=== PATIENT | male | born 1970 | race Caucasian/White ===

== ENCOUNTER 2016-10-24 11:19 | Emergency (ER) | payer BC ==
[~2016-10-24] VITALS: Ht 193 cm; Wt 154.2 kg
[~2016-10-24 11:19] MED LIST: CIPR-255 PO; IBUP-103 PO
[2016-10-24 11:23] VITALS: TEMP 36.5; Ht 193 cm; Wt 154.2 kg
[2016-10-24] MEDS ORDERED: DIPHTHERIA/TETANUS/PERTUSSIS 0.5 ML SYR/VIAL IM. ONE (12:00)
[2016-10-24 12:02] VITALS: BP 161/93; PULSE 78; O2SAT 96
--- NOTE | 2016-10-24 12:11 | DIAGNOSTIC IMAGING REPORT ---
LEFT TIBIA/FIBULA 2 VIEWS ROUTINE CLINICAL HISTORY: Puncture wound left lower leg COMPARISON: None FINDINGS: No acute fracture of the left tibia or fibula is identified. A corticated ossicle along the medial malleolus is old. Talar dome is intact. There is posterior and plantar calcaneal spurring with an os trigonum. No radiopaque foreign bodies are identified. There are suspected varicosities of the left lower leg. IMPRESSION: 1. No acute fracture of the left tibia or fibula. 2. No radiopaque foreign body within the left lower leg. Electronically signed by: Julio Oneill M.D. 10/24/2016 12:10 PM Dictated Date/Time: 10/24/2016 12:08 PM
--- NOTE | 2016-10-25 08:09 | EMERGENCY ROOM VISIT NOTE ---
ED Visit Note First contact with patient: 11:34 CHIEF COMPLAINT: Puncture wound of the left leg HISTORY OF PRESENT ILLNESS: This 46-year-old white male patient was using a drill while standing in the bathtub. He slipped and dropped the drill, breaking the tip of the drill bit. He noticed a open wound on his saldaña. He is unsure if the drill bit broke off in his leg. He states it may have gone down the drain. The area is mildly painful. His accompanies him today. He has been ambulatory. He believes his last tetanus was 9-10 years ago. No numbness or tingling. No other complaints. REVIEW OF SYSTEM: HEENT: No dizziness, visual problems, hearing loss, or tinnitus. There is no difficulty swallowing and no oral lesions are present. PULMONARY: No cough, shortness of breath, sputum production or hemoptysis. CARDIOVASCULAR: No chest pain, palpitations, shortness of breath or peripheral edema. GASTROINTESTINAL: No diarrhea, constipation, nausea, vomiting, or abdominal pain. GENITOURINARY: No dysuria, frequency, urgency or nocturia. NEUROLOGIC: No weakness, muscle tenderness, epilepsy or history of neurological problems. MUSCULOSKELETAL: No history of joint tenderness/swelling. No history of arthritis or arthralgias. SKIN: No rashes or lesions. PSYCHIATRIC: No history of depression or mental illness. ENDOCRINE: No history of diabetes, thyroid disorders, or abnormal hair growth. PMH: The patient is healthy; there is no significant medical or surgical history. Family history: Unremarkable Current medications: Ibuprofen Allergies: Keflex and tetracycline SOCIAL HISTORY: Patient lives at home with his . Employed. No tobacco use. PHYSICAL EXAM: Vital Signs: Reviewed Nurse's notes. Afebrile. General: Well- developed, well-nourished, large middle-aged white male in no acute distress. Sitting on a bed. Alert and oriented. Skin: Warm and dry with good turgor. No rashes or lesions. No ecchymosis or erythema. The patient is not diaphoretic. No abrasions. 8 mm diameter circular puncture wound present on the left saldaña. Bleeding is controlled. No foreign material is visible. Musculoskeletal: There is a puncture wound on the anterior aspect of the left saldaña. No foreign material is seen in the wound. No retained foreign body is palpable under the skin. Strength is 5/5 for resisted ankle dorsiflexion and plantarflexion. Motor function of the toes is intact and unremarkable. No evidence for compartment syndrome. Neurologic: Gross sensation is intact across the left leg by soft touch. Peripheral pulses are 2+. EMERGENCY DEPARTMENT COURSE: Adacel immunization was given IM. Radiographic Imaging of the left tibia and fibula was obtained. No metallic foreign material was noted. Films were read by radiology. DIAGNOSIS: Puncture wound of the left lower leg DISCHARGE INSTRUCTIONS: Patient was educated regarding today's findings. Conservative care measures were discussed. Wound was irrigated copiously using a small amount of Betadine diluted with copious normal sterile saline to total 60 mL. Sterile dressing was applied. Observe the area closely for signs of infection such as redness, swelling, increasing pain, or drainage. Return here or go to your own doctor if any of these occur for consideration of antibiotic treatment. Tylenol and Motrin every 6 hours as needed for mild discomfort. Current/Historical Medications Scheduled PRN Ibuprofen Tab (Advil), 600-800 MG PO for Pain Allergies Coded Allergies: Tetracyclines (Unverified Allergy, Mild, 10/24/16) Cephalexin (Unverified Allergy, Unknown, VOMITING, 10/24/16) Vital Signs Date Time Temp Pulse Resp B/P Pulse Ox O2 Delivery O2 Flow Rate FiO2 10/24/16 12:02 78 20 161/93 96 Room Air 10/24/16 11:23 36.5 82 18 155/96 95 Room Air Medications Administered Medications (Trade) Dose Ordered Sig/Cierra Route Start Time Stop Time Status Last Admin Dose Admin Diphtheria/ Pertussis/Tetanus Vacc (Adacel Inj) 0.5 ml ONCE ONCE IM. 10/24/16 12:00 10/24/16 12:01 DC 10/24/16 12:07 0.5 ML Departure Information Impression Primary Impression: Puncture wound of left lower extremity excluding thigh Dispostion Home / Self-Care Condition FAIR Referrals Viktoria Montoya,DO (PCP) No Doctor, Assigned Forms HOME CARE DOCUMENTATION FORM, MOTRIN USE, TYLENOL USE, IMPORTANT VISIT INFORMATION Patient Instructions My [facility] Additional Instructions Tylenol and Motrin every 6 hours as needed for discomfort Cleanse daily with soap and water and cover with Triple Antibiotic ointment Watch for any signs of infection and return to your PCP or the ED if needed
== END 2016-10-24 12:17 | disposition home or self-care (01) ==
LOC: C.EDB 11:20 → C.EDD 12:17
DX: S81.832A Puncture wound without foreign body, left lower leg, initial encounter (principal); W29.8XXA Contact with other powered hand tools and household machinery, initial encounter; Y92.012 Bathroom of single-family (private) house as the place of occurrence of the external cause

== ENCOUNTER 2017-10-16 01:01 | Emergency (ER) | payer BC ==
[~2017-10-16] VITALS: Ht 193 cm; Wt 138.3 kg
[~2017-10-16 01:01] MED LIST changes: -CIPR-255 PO
[2017-10-16 01:05] VITALS: BP 129/84; PULSE 110; TEMP 36.9; O2SAT 94; Ht 193 cm; Wt 138.3 kg
--- NOTE | 2017-10-16 01:28 | EMERGENCY ROOM VISIT NOTE ---
History Report prepared by Filipe: Quintin Spears Under the Supervision of: Dr. Rasheed Hinton M.D. First contact with patient: 01:11 Chief Complaint: FEVER Stated Complaint: FEVER History of Present Illness The patient is a 47 year old male who presents to the Emergency Room with complaints of constant fever that began 4 hours ago. He states his fever was 104. He denies using a thermometer to take his temperature. He has associated symptoms of a runny nose and cough. He denies taking Tylenol to relieve his symptoms. Patient has a history of chronic urinary infections. He states that his symptoms feel similar to previous urinary infections. He states that he currently takes Cipro. He denies associated symptoms of nausea, vomiting, and passing out. He denies having diabetes. Patient adds that his daughter had the flu a week ago. Patient states that he got the flu shot this year. Patient states that he had urinary reconstruction 19 years ago. He states his doctor is Dr. King from [facility]. Source of History: patient Onset: 4 hours ago Timing: constant Associated Symptoms: + cough, No nausea, No vomiting Note: Patient has a runny nose. He denies passing out. Review of Systems See HPI for pertinent positives & negatives. A total of 10 systems reviewed and were otherwise negative. Past Medical & Surgical Medical Problems: (1) Urinary tract infection Family History No pertinent family history. Social History Smoking Status: Former Smoker Housing Status: lives with family Current/Historical Medications Scheduled Oseltamivir (Tamiflu), 75 MG PO BID Scheduled PRN Ibuprofen Tab (Advil), 600-800 MG PO for Pain Allergies Coded Allergies: Tetracyclines (Unverified Allergy, Mild, 10/16/17) Cephalexin (Unverified Allergy, Unknown, VOMITING, 10/16/17) Physical Exam Vital Signs Date Time Temp Pulse Resp B/P (MAP) Pulse Ox O2 Delivery O2 Flow Rate FiO2 10/16/17 01:05 36.9 110 18 129/84 94 Room Air Physical Exam GENERAL: Patient is well appearing and in no acute distress. HEENT: No acute trauma, normocephalic atraumatic, mucous membranes moist, mild runny nose, no scleral icterus. NECK: No stridor, no adenopathy, no meningismus, trachea is midline. LUNGS: No dyspnea. Clear to auscultation and equal bilaterally. No wheeze, no rhonchi. HEART: Tachycardic rate and rhythm. No murmurs, rubs, gallops appreciated. ABDOMEN: Soft, nontender, bowel sounds positive, no masses appreciated, no peritonitis. BACK: No midline tenderness, no CVA tenderness EXTREMITIES: Normal motion all extremities, no cyanosis, no edema. NEUROLOGIC: Alert and oriented, no acute motor or sensory deficits, no focal weakness, cranial nerves grossly intact. SKIN: No rash, no jaundice, no diaphoresis. Medical Decision & Procedures Laboratory Results Test 10/16/17 01:40 Urine Color YELLOW Urine Appearance TURBID (CLEAR) Urine pH 5.0 (4.5-7.5) Urine Specific [place] 1.030 (1.000-1.030) Urine Protein NEG (NEG) Urine Glucose (UA) TRACE (NEG) Urine Ketones TRACE (NEG) Urine Occult Blood NEG (NEG) Urine Nitrite NEG (NEG) Urine Bilirubin NEG (NEG) Urine Urobilinogen NEG (NEG) Urine Leukocyte Esterase MODERATE (NEG) Urine WBC (Auto) >30 /hpf (0-5) Urine RBC (Auto) 0-4 /hpf (0-4) Urine Hyaline Casts (Auto) 1-5 /lpf (0-5) Urine Epithelial Cells (Auto) 5-10 /lpf (0-5) Urine Bacteria (Auto) 4+ (NEG) ED Course 0120: The patient was evaluated in room B4. A complete history and physical exam was performed. 0135: Reevaluated the patient. Discussed results and discharge instructions. He verbalized understanding and agreement. The patient is ready for discharge. Medical Decision Differential: Viral, Pharyngitis, Cellulitis, Pneumonia, Influenza, Meningitis, Sepsis, Bacteremia, UTI/Pyelonephritis, Endocrine, Toxicologic, amongst other pathologies entertained. 47 yr old male with previous history penial reconstructive surgery and periodic UTIs arrives with fevers, increased urination and cloudy urine. Also has URI symptoms that could represent flu, which his daughter had last week. Carries Cipro with him which he will take as UA/UCx obtained here. UA is consistent with UTI, and I discussed previous resistance to Cipro, but he states it is what his Urologist wishes him to take, thus we will await further pattern of this infection. I will start him on Tamiflu given early symptoms, URI symptoms , daughter with flu, and the epidemic currently in area. He is mildly tachycardic but does not exhibit other evidence of sepsis/bacteremia. He has no flank/back pain to suggest pyelonephritis at this time. Medication Reconcilliation Current Medication List: was personally reviewed by me Blood Pressure Screening Patient's blood pressure: Normal blood pressure Blood pressure disposition: Did not require urgent referral Impression Primary Impression: Urinary tract infection symptoms Additional Impression: Influenza-like symptoms Scribe Attestation The scribe's documentation has been prepared under my direction and personally reviewed by me in its entirety. I confirm that the note above accurately reflects all work, treatment, procedures, and medical decision making performed by me. Departure Information Dispostion Home / Self-Care Prescriptions Oseltamivir (Tamiflu) 75 Mg Cap 75 MG PO BID, #10 CAP Prov: Rasheed Hinton M.D. 10/16/17 Referrals No Doctor, Assigned (PCP) Patient Instructions My [facility] Additional Instructions Follow up with your Urologist. Return if worsening fevers, passing out, vomiting, abdominal pains or other concerns. Take Tamiflu if flu like symptoms worsen within 48 hours of symptom onset. You may Use Tylenol (acetaminophen) as needed for fevers and body aches. Problem Qualifiers
[2017-10-16] MEDS ORDERED: OSEL75CA12 PO (01:30)
== END 2017-10-16 01:40 | disposition home or self-care (01) ==
LOC: C.EDB 01:02
DX: R50.9 Fever, unspecified (principal); R05 Cough; R82.99 Other abnormal findings in urine; Z87.440 Personal history of urinary (tract) infections; Z87.891 Personal history of nicotine dependence

== ENCOUNTER → 2017-11-23 | Outpatient (CLI) | payer BC ==
[~2017-11-23] MED LIST changes: +ALPR-411 PO; +CIPR1TAB11 PO; +CZR50 PO; +NAPR-1169 PO; +OSEL75CA12 PO
[2017-11-23 13:40] LABS: BASO % 1.6 %; EOS % 4.4 %; EOS ABS # 0.28 K/uL (0-0.5); HEMATOCRIT 42.6 % (42-52); HEMOGLOBIN 14.5 g/dL (14.0-18.0); IG# 0.04 K/uL (0.00-0.02); LYMPH % 42.7 %; LYMPH ABS # 2.74 K/uL (1.2-3.4); MEAN CELL VOLUME 90.4 fL (80-100); MEAN CORPUSCULAR HEMOGLOBIN 30.8 pg (25-34); MEAN PLATELET VOLUME 10.8 fL (7.4-10.4); MONO % 19.7 %; MONO ABS # 1.26 K/uL (0.11-0.59); NEUT ABS # 1.99 K/uL (1.4-6.5); PLATELET COUNT 235 K/uL (130-400); RED CELL DISTRIBUTION WIDTH CV 13.2 % (11.5-14.5); RED CELL DISTRIBUTION WIDTH SD 43.4 fL (36.4-46.3); WHITE BLOOD COUNT 6.41 K/uL (4.8-10.8)
[2017-11-23 14:03] LABS: BLOOD UREA NITROGEN 12 mg/dl (7-18); CALCIUM 8.8 mg/dl (8.5-10.1); CARBON DIOXIDE 24 mmol/L (21-32); CREATININE 0.81 mg/dl (0.60-1.40); GLUCOSE 102 mg/dl (70-99); POTASSIUM 4.1 mmol/L (3.5-5.1); SODIUM 136 mmol/L (136-145)
[2017-11-23 14:04] LABS: ALBUMIN 3.9 gm/dl (3.4-5.0); ALKALINE PHOSPHATASE 52 U/L (45-117); ALT/SGPT 112 U/L (12-78); AST/SGOT 72 U/L (15-37); TOTAL PROTEIN 9.2 gm/dl (6.4-8.2)
== END | disposition home or self-care (01) ==
LOC: C.LABSPEC 13:01
PROVIDERS: ATTEND Family Medicine
DX: A41.9 Sepsis, unspecified organism (principal)

== ENCOUNTER → 2017-11-26 | Outpatient (CLI) | payer BC ==
--- NOTE | 2017-11-26 10:55 | DIAGNOSTIC IMAGING REPORT ---
CHEST 2 VIEWS ROUTINE HISTORY: 47 years-old Male PICC LINE REMOVAL status post removal of right-sided PICC COMPARISON: Chest radiograph 08/19/2009 TECHNIQUE: PA and lateral views of the chest FINDINGS: Cardiac mediastinal and hilar silhouettes are within normal limits. No pneumothorax, pleural effusion, focal airspace consolidation or overt pulmonary edema. Mild right hemidiaphragmatic elevation. Degenerative changes are noted within the shoulders and spine. IMPRESSION: No acute process. The above report was generated using voice recognition software. It may contain grammatical, syntax or spelling errors. Electronically signed by: Thierno Austin M.D. 11/26/2017 10:53 AM Dictated Date/Time: 11/26/2017 10:52 AM
== END | disposition home or self-care (01) ==
LOC: C.RAD 10:10
PROVIDERS: ATTEND Family Medicine
DX: Z45.2 Encounter for adjustment and management of vascular access device (principal)

== ENCOUNTER → 2017-11-26 | Day surgery (SDC) | payer BC ==
[~2017-11-26] VITALS: Ht 194.3 cm; Wt 186.0 kg
[2017-11-26 09:53] VITALS: BP 156/83; PULSE 88; TEMP 36.3; O2SAT 99; Ht 194.3 cm; Wt 186.0 kg
== END | disposition home or self-care (01) ==
LOC: C.MTU 09:31
PROVIDERS: ATTEND Family Medicine
DX: Z45.2 Encounter for adjustment and management of vascular access device (principal)

== ENCOUNTER 2018-09-06 14:15 | Inpatient (IN) ==
[2018-09-06 15:21] LABS: Appearance Urine Cloudy (Clear); Bacteria Urine Automated 2+ (Negative); Bilirubin Urine Negative (Negative); Color Urine Yellow; Glucose Urine UA 1+ (Negative); Ketones Urine Negative (Negative); Leukocyte Esterase Urine 2+ (Negative); Nitrite Urine Positive (Negative); Protein Urine Negative (Negative); Specific Gravity Urine 1.028 (1.000-1.030); Urobilinogen Urine Negative (Negative); WBC Urine Automated >30 /hpf (0-5)
[2018-09-06] MEDS ORDERED: ACETAMINOPHEN 500 MG TAB PO STA (15:30)
[2018-09-06] MEDS ORDERED: SODIUM CHLORIDE 0.9% 1000ML 1,000 ML IV SCH ×2 (15:30→17:00)
[2018-09-06] MEDS ORDERED: ONDANSETRON INJ 2 MG/ML 2 ML VIAL IV STA (15:30)
[2018-09-06 15:56] LABS: Basophils # (auto) 0.04 K/uL (0-0.2); Basophils % (auto) 0.2 %; Eosinophils # (auto) 0.12 K/uL (0-0.5); Eosinophils % (auto) 0.7 %; Hematocrit (blood only) 43.3 % (42-52); Hemoglobin 14.7 g/dL (14.0-18.0); Immature Granulocytes # (auto) 0.08 K/uL (0.00-0.02); Immature Granulocytes % (auto) 0.4 %; Lymphocytes # (auto) 0.68 K/uL (1.2-3.4); Lymphocytes % (auto) 3.8 %; Mean Corpuscular Hgb Conc 33.9 g/dL (32-36); Mean Corpuscular Volume 91.5 fL (80-100); Mean Platelet Volume 10.5 fL (7.4-10.4); Monocytes # (auto) 0.66 K/uL (0.11-0.59); Monocytes % (auto) 3.7 %; Neutrophils # (auto) 16.27 K/uL (1.4-6.5); Neutrophils % (auto) 91.2 %; Platelet Count 216 K/uL (130-400); RDW Coefficient of Variation 12.8 % (11.5-14.5); RDW Standard Deviation 42.5 fL (36.4-46.3); Red Blood Count 4.73 M/uL (4.7-6.1); White Blood Count 17.85 K/uL (4.8-10.8)
[2018-09-06 16:14] LABS: Albumin Level 3.9 gm/dl (3.4-5.0); BUN Creatinine Ratio 11.9 (10-20); Calcium 8.9 mg/dl (8.5-10.1); Creatinine Clr Calc Pharmacy 157.4 ml/min; Est GFR (African American) 97.3; Est GFR (Non-African American) 83.9
[2018-09-06 16:19] LABS: Albumin Globulin Ratio 0.7 (0.9-2); Bilirubin,Total 0.7 mg/dl (0.2-1); Globulin 5.4 gm/dl (2.5-4.0); Total Protein 9.3 gm/dl (6.4-8.2)
[2018-09-06] MEDS ORDERED: SODIUM CHLORIDE 0.9% 1000ML 1,000 ML IV STA (16:47)
[2018-09-06] MEDS ORDERED: DAPTOmycin 775 MG in SYRINGE 0 ML IV ONE (16:47)
[2018-09-06] MEDS ORDERED: OPTIRAY 320 125ml IV PRN (17:08)
--- NOTE | 2018-09-06 17:21 | CT Scan Report ---
CT OF THE ABDOMEN AND PELVIS WITH CONTRAST CLINICAL HISTORY: Fever. Urinary tract infection. Evaluate for pyelonephritis. COMPARISON STUDY: CT of the abdomen and pelvis February 14, 2018. TECHNIQUE: Following IV administration of 115 mL of Optiray-320, axial images of the abdomen and pelv is were obtained from the lung bases to the proximal femurs. Images were reviewed in the axial, sagit wesley, and coronal planes. IV contrast was administered without complication. Automated exposure contr ol was utilized for the study. A dose lowering technique was utilized adhering to the principles of ALARA. CT DOSE: 2451.84 mGy.cm FINDINGS: Lung bases are clear. 2 right renal calculi measure up to 7 mm. There are no ureteral calcu li. There is no hydronephrosis or hydroureter. There is no renal abscess. There is no CT evidence for pyelonephritis. The nephrograms are symmetric. Fatty infiltration of the liver is noted. The spleen, adrenal glands and pancreas are unremarkable. There is no evidence for a bowel obstruction. The appe ndix is normal. There is no ascites. No lymphadenopathy is present. There are prosthetic calcificatio ns. No pneumatosis, free air or portal venous gas is present. No suspicious osseous lesions are noted . IMPRESSION: 1. Right-sided nephrolithiasis. No ureteral calculi or hydronephrosis. 2. No CT evidence for pyelonephritis. 3. Fatty liver. 4. No bowel obstruction. Normal appendix. Electronically signed by: Julio Oneill M.D. 09/06/2018 5:20 PM
[2018-09-06] MEDS: AZTREONAM 2,000 MG in DEXTROSE 5% 100 ML IV SCH (18:08)
--- NOTE | 2018-09-06 18:47 | Emergency Department Note ---
Entered by Marleen Kebede acting as a scribe for ED Provider Note CHIEF COMPLAINT: Urinary retention HISTORY OF PRESENT ILLNESS: The patient is a 48 year old male who presents to the Emergency Room with complaints of persistent urinary retention that began several days prior to arrival. The patient states that he previously had a urethral reconstruction, and states that he has had scar tissue buildup from this surgery. He states that he has a procedure to remove some of this scar tissue scheduled for 2 days from today. The patient states that he has fevers, chills, headache, diarrhea, nausea, and vomiting. The patient states that this is similar to prior episodes. The patient states that he is currently on Macrobid. Pt denies LOC, diaphoresis, visual changes, neck pain, chest pain, breathing difficulties, abdominal pain, back pain, melena, hematochezia, numbness, weakness, lymphadenopathy, rash, or other complaints. REVIEW OF SYSTEMS: See HPI for pertinent positives and negatives. A total of ten systems were reviewed and were otherwise negative. PMHx/PSHx: Urinary tract infection Urethral reconstruction SOCIAL HISTORY: Patient lives at home. PHYSICAL EXAM: GENERAL: Awake, alert, uncomfortable-appearing, in no distress HENT: Normocephalic, atraumatic. Oropharynx unremarkable. EYES: Normal conjunctiva. Sclera non-icteric. NECK: Supple. No nuchal rigidity. FROM. No masses. RESPIRATORY: Clear to auscultation. No wheezes. No rales. Normal respiratory effort. CARDIAC: Tachycardic rate. Normal rhythm. No murmurs. No rubs. Extremities warm and well perfused. Pulses equal. No JVD. GI: Soft, non-distended. No tenderness to palpation. No rebound or guarding. No masses. RECTAL: Deferred. MUSCULOSKELETAL: Atraumatic. Chest examination reveals no tenderness. The back is symmetrical on inspection without obvious abnormality. There is no CVA tenderness to palpation. No joint edema. LOWER EXTREMITIES: Calves are equal size bilaterally and non-tender. No edema. No discoloration. NEURO: Normal sensorium. No sensory or motor deficits noted. SKIN: No rash or jaundice noted. EMERGENCY DEPARTMENT COURSE: 1518: Past medical records reviewed. The patient was evaluated in room C12B, and a complete history and physical examination were performed. 1647: I reevaluated the patient and he states that he is feeling better. 1708: I [facility] further [facility] the patient. MEDICAL DECISION MAKING: Prior records/ancillary studies reviewed. Triage Nursing notes reviewed and agree them. Additional history obtained from the patient significant other. The patient's history was concerning for urinary symptoms. Differential diagnosis: Etiologies such as UTI, cystitis, urinary obstruction, pneumonia,sepsis, bacteremia, as well as others were entertained. Physical examination: As above. Patient had some rigors. I did check his temperature and it was 102.9 F. ER treatment provided: IV normal saline hydration Oral Tylenol IV Zofran IV aztreonam IV daptomycin On reassessment the patient felt better. Diagnostics interpreted by me: The labs revealed a significant leukocytosis on CBC. White blood cell count was 17.8. The patient's lactate was mildly elevated at 2.1. The urinalysis was very concerning for infection. Imaging studies: CT scan of the abdomen pelvis was performed and was unremarkable. The patient has signs of Sirs/sepsis on examination. He has not exhibiting any septic shock. He is doing better after fluids and the above medications. Consultation: A consultation was placed with the [facility]ist service. The case was discussed and diagnostics were reviewed. The patient was evaluated in the ER for further treatment. IMPRESSION: Sepsis UTI PLAN: Admit. The scribe's documentation has been prepared under my direction and personally reviewed by me in its entirety. I confirm that the note above accurately reflects all work, treatment, procedures, and medical decision making performed by me. 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 in left arm and sometimes in right Family History Grandfather (Paternal) Family history of diabetes mellitus Mother Family history of diabetes mellitus Grandmother (Maternal) Family history of diabetes mellitus Social History Current Living Situation: Spouse Feels Safe at Home: Yes Smoking Status: Former smoker Tobacco Type: cigars Cigarettes per Day: occasional Hx Alcohol Use: No Hx Substance Use: No Beliefs That Will Affect Care: None Preferred Language: Andorran Results & Data Vital Signs Vital Signs - 24 hr 09/06/18 14:18 09/06/18 15:51 09/06/18 17:23 Temperature 37.1 C 37.9 C H Temperature Source Oral Oral Sepsis Recent Fever Within 48 Hours No Sepsis New/Unexplained Change in Mental Status No Sepsis Action Taken by Nursing No Action Required Pulse Rate 124 H Pulse Rate [Apical] 107 H 102 H Pulse Rhythm [Apical] Regular Regular Pulse Strength [Apical] Normal Normal Respiratory Rate 28 H 18 18 Respiratory Effort / Characteristics Non-Labored Spontaneous Non-Labored Spontaneous Respiratory Depth Normal Normal Respiratory Pattern Regular Regular Blood Pressure 146/76 H Blood Pressure [Left Arm] 176/88 H 103/62 Blood Pressure Mean 99 Blood Pressure Mean [Left Arm] 117 75 Blood Pressure Position [Left Arm] Sitting Pulse Oximetry 98 97 95 Oxygen Delivery Method Room Air Room Air 09/06/18 18:14 Temperature Temperature Source Sepsis Recent Fever Within 48 Hours Sepsis New/Unexplained Change in Mental Status Sepsis Action Taken by Nursing Pulse Rate Pulse Rate [Apical] 114 H Pulse Rhythm [Apical] Pulse Strength [Apical] Respiratory Rate 22 Respiratory Effort / Characteristics Respiratory Depth Respiratory Pattern Blood Pressure Blood Pressure [Left Arm] 119/82 Blood Pressure Mean Blood Pressure Mean [Left Arm] 94 Blood Pressure Position [Left Arm] Pulse Oximetry 94 Oxygen Delivery Method Home Medications Current Medication List: was personally reviewed by me Laboratory Data Attestation: I reviewed the patient's lab results. Result diagrams: 09/06/18 15:48 09/06/18 15:48 Lab Results 09/06/18 09/06/18 09/06/18 Range/Units 14:40 15:48 15:48 WBC 17.85 H (4.8-10.8) K/uL RBC 4.73 (4.7-6.1) M/uL Hgb 14.7 (14.0-18.0) g/dL Hct 43.3 (42-52) % MCV 91.5 (80-100) fL MCH 31.1 (25-34) pg MCHC 33.9 (32-36) g/dL RDW Std Deviation 42.5 (36.4-46.3) fL RDW Coeff of Tyra 12.8 (11.5-14.5) % Plt Count 216 (130-400) K/uL MPV 10.5 H (7.4-10.4) fL Immature Gran % (Auto) 0.4 % Neut % (Auto) 91.2 % Lymph % (Auto) 3.8 % Hopkins % (Auto) 3.7 % Eos % (Auto) 0.7 % Baso % (Auto) 0.2 % Immature Gran # (Auto) 0.08 H (0.00-0.02) K/uL Neut # (Auto) 16.27 H (1.4-6.5) K/uL Lymph # (Auto) 0.68 L (1.2-3.4) K/uL [place] # (Auto) 0.66 H (0.11-0.59) K/uL Eos # (Auto) 0.12 (0-0.5) K/uL Baso # (Auto) 0.04 (0-0.2) K/uL Sodium 135 L (136-145) mmol/L Potassium 4.0 (3.5-5.1) mmol/L Chloride 101 (98-107) mmol/L Carbon Dioxide 26 (21-32) mmol/L Anion Gap 8.0 (3-11) BUN 12 (7-18) mg/dl Creatinine 1.04 (0.6-1.4) mg/dl Est Cr Clr Drug Dosing 157.4 ml/min Est GFR ( Amer) 97.3 Est GFR (Non-Af Amer) 83.9 BUN/Creatinine Ratio 11.9 (10-20) Glucose 112 H (70-99) mg/dl POC Lactic Acid Ag (0.90-1.70) mmol/L Calcium 8.9 (8.5-10.1) mg/dl Total Bilirubin 0.7 (0.2-1) mg/dl AST 45 H (15-37) U/L ALT 74 (12-78) U/L Alkaline Phosphatase 61 (45-117) U/L Total Protein 9.3 H (6.4-8.2) gm/dl Albumin 3.9 (3.4-5.0) gm/dl Globulin 5.4 H (2.5-4.0) gm/dl Albumin/Globulin Ratio 0.7 L (0.9-2) Urine Color Yellow Urine Appearance Cloudy H (Clear) Urine pH 6.0 (4.5-7.5) Ur Specific [place] 1.028 (1.000-1.030) Urine Protein Negative (Negative) Urine Glucose (UA) 1+ H (Negative) Urine Ketones Negative (Negative) Urine Blood Trace H (Negative) Urine Nitrite Positive H (Negative) Urine Bilirubin Negative (Negative) Urine Urobilinogen Negative (Negative) Ur Leukocyte Esterase 2+ H (Negative) Urine WBC (Auto) >30 H (0-5) /hpf Urine RBC (Auto) 0-4 (0-4) /hpf U Hyaline Cast (Auto) 5-10 H (0-5) /lpf U Epithel Cells (Auto) 10-20 H (0-5) /lpf Urine Bacteria (Auto) 2+ H (Negative) 09/06/18 Range/Units 15:54 WBC (4.8-10.8) K/uL RBC (4.7-6.1) M/uL Hgb (14.0-18.0) g/dL Hct (42-52) % MCV (80-100) fL MCH (25-34) pg MCHC (32-36) g/dL RDW Std Deviation (36.4-46.3) fL RDW Coeff of Tyra (11.5-14.5) % Plt Count (130-400) K/uL MPV (7.4-10.4) fL Immature Gran % (Auto) % Neut % (Auto) % Lymph % (Auto) % Hopkins % (Auto) % Eos % (Auto) % Baso % (Auto) % Immature Gran # (Auto) (0.00-0.02) K/uL Neut # (Auto) (1.4-6.5) K/uL Lymph # (Auto) (1.2-3.4) K/uL Hopkins # (Auto) (0.11-0.59) K/uL Eos # (Auto) (0-0.5) K/uL Baso # (Auto) (0-0.2) K/uL Sodium (136-145) mmol/L Potassium (3.5-5.1) mmol/L Chloride (98-107) mmol/L Carbon Dioxide (21-32) mmol/L Anion Gap (3-11) BUN (7-18) mg/dl Creatinine (0.6-1.4) mg/dl Est Cr Clr Drug Dosing ml/min Est GFR ( Amer) Est GFR (Non-Af Amer) BUN/Creatinine Ratio (10-20) Glucose (70-99) mg/dl POC Lactic Acid Ag 2.12 H (0.90-1.70) mmol/L Calcium (8.5-10.1) mg/dl Total Bilirubin (0.2-1) mg/dl AST (15-37) U/L ALT (12-78) U/L Alkaline Phosphatase (45-117) U/L Total Protein (6.4-8.2) gm/dl Albumin (3.4-5.0) gm/dl Globulin (2.5-4.0) gm/dl Albumin/Globulin Ratio (0.9-2) Urine Color Urine Appearance (Clear) Urine pH (4.5-7.5) Ur Specific [place] (1.000-1.030) Urine Protein (Negative) Urine Glucose (UA) (Negative) Urine Ketones (Negative) Urine Blood (Negative) Urine Nitrite (Negative) Urine Bilirubin (Negative) Urine Urobilinogen (Negative) Ur Leukocyte Esterase (Negative) Urine WBC (Auto) (0-5) /hpf Urine RBC (Auto) (0-4) /hpf U Hyaline Cast (Auto) (0-5) /lpf U Epithel Cells (Auto) (0-5) /lpf Urine Bacteria (Auto) (Negative) Administered Medications Aztreonam 2,000 mg/ Dextrose 110 mls @ 100 mls/hr IV Q8H COUNT INCLUDES THE [facility] Stop: 09/08/18 16:59 Last Admin: 09/06/18 18:08 Dose: 100 mls/hr Ioversol (Optiray 320 125ml) 116 ml IV ONCE PRN PRN Reason: Interaction Checking Stop: 09/10/18 17:07 Last Admin: 09/06/18 17:08 Dose: 116 ml Discontinued Medications Acetaminophen (Tylenol) 1,000 mg PO ONE STA Stop: 09/06/18 15:31 Last Admin: 09/06/18 15:48 Dose: 1,000 mg Sodium Chloride (Nss 1000ml) 1,000 mls @ 999 mls/hr IV .Q1H1M COUNT INCLUDES THE [facility] Stop: 09/06/18 16:30 Last Infusion: 09/06/18 16:54 Dose: 0 mls/hr Admin: 09/06/18 15:49 Dose: 999 mls/hr Sodium Chloride (Nss 1000ml) 1,000 mls @ 999 mls/hr IV .Q1H1M DIMAS Stop: 09/06/18 18:00 Last Admin: 09/06/18 16:56 Dose: 999 mls/hr Daptomycin 775 mg/ Syringe 15.5 mls @ 7.75 mls/min IV NOW ONE Stop: 09/06/18 16:48 Last Admin: 09/06/18 18:08 Dose: 7.75 mls/min Ondansetron HCl (Zofran) 4 mg IV NOW STA Stop: 09/06/18 15:31 Last Admin: 09/06/18 15:48 Dose: 4 mg Imaging Data Radiologist's Impression: Radiology results as stated below per my review and the radiologist's interpretation: CT OF THE ABDOMEN AND PELVIS WITH CONTRAST CLINICAL HISTORY: Fever. Urinary tract infection. Evaluate for pyelonephritis. COMPARISON STUDY: CT of the abdomen and pelvis February 14, 2018. TECHNIQUE: Following IV administration of 115 mL of Optiray-320, axial images of the abdomen and pelvis were obtained from the lung bases to the proximal femurs. Images were reviewed in the axial, sagittal, and coronal planes. IV contrast was administered without complication. Automated exposure control was utilized for the study. A dose lowering technique was utilized adhering to the principles of ALARA. CT DOSE: 2451.84 mGy.cm FINDINGS: Lung bases are clear. 2 right renal calculi measure up to 7 mm. There are no ureteral calculi. There is no hydronephrosis or hydroureter. There is no renal abscess. There is no CT evidence for pyelonephritis. The nephrograms are symmetric. Fatty infiltration of the liver is noted. The spleen, adrenal glands and pancreas are unremarkable. There is no evidence for a bowel obstruction. The appendix is normal. There is no ascites. No lymphadenopathy is present. There are prosthetic calcifications. No pneumatosis, free air or portal venous gas is present. No suspicious osseous lesions are noted. IMPRESSION: 1. Right-sided nephrolithiasis. No ureteral calculi or hydronephrosis. 2. No CT evidence for pyelonephritis. 3. Fatty liver. 4. No bowel obstruction. Normal appendix. Electronically signed by: Julio Oneill M.D. 09/06/2018 5:20 PM Blood Pressure Blood Pressure Findings: Elevated blood pressure Blood Pressure Disposition: further management by hospitalist Discharge Plan Visit Data Chief Complaint: Unable to Void Stated Complaint: BLOCKED URETHA ED Provider: Arnaldo Hammond Discharge Problem: Sepsis, UTI (urinary tract infection) Patient Disposition: Being Evaluated by Hospitalist The scribe's documentation has been prepared under my direction and personally reviewed by me in its entirety. I confirm that the note above accurately reflects all work, treatment, procedures, and medical decision making performed by me.
--- NOTE | 2018-09-06 19:32 | History & Physical Report ---
Date of Service September 06, 2018 Assessment & Plan (1) Sepsis: Met criteria for sepsis per current CMS definition (fever, tachycardia, tachypnea, leukocytosis). Source is urinary tract as outlined below. Blood and urine cultures obtained in ED. Patient received broad-spectrum IV antibiotic therapy with daptomycin and aztreonam. Serum lactate 2.12-recheck. Hemodynamically stable. Best to avoid quinolones in light of history of Achilles tendinitis. Continue aztreonam for gram-negative coverage. Will hold on further administration of daptomycin unless gram-positive coverage is indicated per culture results. (2) UTI (urinary tract infection): History of urethral stricture with anticipated surgery planned for 09/08. UA shows leukocyte esterase, RBCs, bacteria. Probable UTI. No ureteral calculi on CT. No CT evidence of pyelonephritis. Continue IV aztreonam for gram-negative coverage. Consult Urology. (3) Nephrolithiasis: 2 calculi noted in the right kidney. No ureteral calculi. Management per Urology. (4) Essential hypertension: Continue losartan with hold parameters. (5) Diabetes mellitus type 2, controlled: Hold metformin during hospital stay. Check hemoglobin A1c. Lantus/NovoLog per protocol. (6) Morbid obesity: Weight 191.9 kg. BMI 51. AHA, diabetic diet. (7) DVT prophylaxis: Low risk for VTE per IMPROVE Risk Assessment Model. However, at increased risk due to obesity and sepsis. No anticoagulants due to anticipated urologic procedure. SCD's. Ambulate. (8) Discharge planning issues: Anticipated discharge to home. Family Medicine follow-up with Dr. Moncada. Urology follow-up with Dr. Soni. History of Present Illness Chief Complaint: fever, chills, urinary symptoms Primary Care Provider: Ahsan Moncada 48-year-old male followed by Dr. Moncada for Family Medicine and Dr. Soni for Urology. History of essential hypertension, diabetes mellitus type 2, and other problems as noted below. History of urethral surgery with subsequent stricture. Scheduled for surgery with Dr. Soni on September 08. Had transient fever on 08/31 and 09/01. Afebrile for the next few days. Today, he developed fever, chills, urinary urgency and hesitancy. No dysuria or hematuria. No flank pain. Came to the ED for evaluation. Noted to have temp as high as 39.4. Had one episode of nausea and vomiting without hematemesis. Allergies Allergy/AdvReac Type Severity Reaction Status Date / Time cephalexin Allergy Unknown VOMITING Verified 09/06/18 14:58 Tetracyclines AdvReac Mild fever, Verified 09/06/18 14:58 hallucinations, vomiting Home Medications Home Medications Medication Instructions Recorded Confirmed Type losartan 25 mg PO BID 08/19/18 09/06/18 History metformin 1,000 mg PO HS 08/19/18 09/06/18 History naproxen sodium 440 mg PO BID 08/19/18 09/06/18 History nitrofurantoin monohyd/m-cryst 100 mg PO BID 09/06/18 09/06/18 History Past Med/Surg History Medical History Morbid obesity (Chronic) Nephrolithiasis (Chronic) Diabetes mellitus type 2, controlled (Chronic) Essential hypertension (Chronic) Anxiety (Chronic) has been prescribed meds, but does not take Low back pain (Chronic) Numbness of arm (Resolved) 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 in left arm and sometimes in right Surgical History History of urinary tract surgery (Chronic) 20 yr ago had urethral reconstruction - currently having decreased urinary flow Hx of oral surgery (Chronic) osteotomy Hx of tonsillectomy (Chronic) Family History Grandfather (Paternal) Diabetes mellitus Mother Diabetes mellitus Grandmother (Maternal) Diabetes mellitus Father Hypertension Social History Current Living Situation: Family Other Information That Helps Us Care for You: No Feels Safe at Home: Yes Safety Concerns: Feels Safe At This Time Smoking Status: Never smoker Tobacco Type: cigars Do You Dip or Chew Tobacco: No Second Hand Exposure: No Tobacco Cessation Education Requested by Patient: No Hx Alcohol Use: Yes Alcohol type: beer and wine Alcohol Intake Frequency: holidays/special occasions only Hx Substance Use: No Beliefs That Will Affect Care: None Preferred Language: Citizen Of [place] Communication Ability: Effective Supervisor Delivery Department Required: No Review of Systems Constitutional: + fever; no weight loss Eyes: no diplopia and no worsening vision Ear, Nose, Mouth, Throat: + nasal congestion (chronic) Respiratory: no cough and no dyspnea Cardiovascular: no chest pain, no palpitations and no edema Gastrointestinal: + nausea (today) and + vomiting (today); no hematemesis, no constipation, no diarrhea/loose stools, no blood in stools and no melena Genitourinary (Male): + as per Subjective / HPI Musculoskeletal: + joint pain (neck, back) Integumentary: no rash and no new lesions Neurologic: no headache(s) Endocrine: no polydipsia and no polyuria Hematologic / Lymphatic: no easy bleeding, no easy bruising and no lymphadenopathy Physical Exam 2 Vital Signs (Past 24 Hours): Last Vital Signs Temp 37.9 C H 09/06/18 17:23 Pulse 114 H 09/06/18 18:14 Resp 22 09/06/18 18:14 BP 119/82 09/06/18 18:14 Pulse Ox 94 09/06/18 18:14 Constitutional: + morbidly obese; no acute distress Eyes: PERRL, conjunctivae normal, anicteric sclerae ENMT: external ear and nose normal, oropharynx normal Neck: trachea midline, no thyromegaly Respiratory: normal respiratory effort, lungs clear to auscultation Cardiovascular: Rate/Rhythm: regular rate and + tachycardic Heart Sounds: no gallop, no murmur and no cardiac rub Vessels: no JVD Extremities: normal capillary refill; no calf tenderness and no edema Gastrointestinal (Abdomen): normal bowel sounds, soft, nontender, no hepatosplenomegaly Musculoskeletal: Head/Neck/Chest: neck supple Extremities: strength 5/5 throughout; no cyanosis and no clubbing Skin: no rashes, warm and dry Neurologic: PERRL, EOMI no facial palsy no dysarthria or aphasia Psychiatric: Orientation: alert and oriented x 3 Affect: euthymic affect Lymphatic: no cervical lymphadenopathy Results & Data Laboratory Results Short CBC 09/06/18 Range/Units 15:48 WBC 17.85 H (4.8-10.8) K/uL Hgb 14.7 (14.0-18.0) g/dL Hct 43.3 (42-52) % Plt Count 216 (130-400) K/uL BMP 09/06/18 15:48 Sodium 135 L Potassium 4.0 Chloride 101 Carbon Dioxide 26 BUN 12 Creatinine 1.04 Glucose 112 H Calcium 8.9 Liver Function 09/06/18 Range/Units 15:48 Total Bilirubin 0.7 (0.2-1) mg/dl AST 45 H (15-37) U/L ALT 74 (12-78) U/L Alkaline Phosphatase 61 (45-117) U/L Albumin 3.9 (3.4-5.0) gm/dl Urine 09/06/18 Range/Units 14:40 Urine Color Yellow Urine Appearance Cloudy H (Clear) Urine pH 6.0 (4.5-7.5) Ur Specific [place] 1.028 (1.000-1.030) Urine Protein Negative (Negative) Urine Glucose (UA) 1+ H (Negative) Diagnostic Findings CT of abdomen and pelvis demonstrated 2 calculi in the right kidney without obstruction, no radiographic evidence of pyelonephritis, fatty liver, no acute processes. Code Status & VTE Plan Code Status full code VTE Prophylaxis Plan VTE Prophylaxis will be ordered: Yes _ (1) UTI (urinary tract infection) Encounter type: Hematuria presence: without hematuria Indwelling urinary catheter type: Urinary tract infection type: site unspecified Qualified Code( s): N39.0 - Urinary tract infection, site not specified (2) Sepsis Sepsis type: sepsis due to unspecified organism Qualified Code(s): A41.9 - Sepsis, unspecified organism
[2018-09-06] MEDS ORDERED: ACETAMINOPHEN 325 MG TAB PO PRN (20:10)
[2018-09-06] MEDS ORDERED: ONDANSETRON INJ 2 MG/ML 2 ML VIAL IV PRN (20:10)
[2018-09-06] MEDS ORDERED: GLUCAGON FOR INJ 1 MG VIAL IM PRN (21:28)
[2018-09-06] MEDS ORDERED: CARBOHYDRATES FOR HYPOGLYCEMIA PO PRN (21:28)
[2018-09-06] MEDS ORDERED: DEXTROSE 50% 50 ML SYRINGE IV PRN (21:28)
[2018-09-06] MEDS ORDERED: GLUCOSE 40% GEL 15 GM TUBE PO PRN (21:28)
[2018-09-06] MEDS ORDERED: GLUCOSE 10 TABS/TUBE PO PRN (21:28)
[2018-09-06] MEDS: INSULIN ASPART 100 UNITS/ML 3 ML PEN SC SCH (22:21)
[2018-09-07] MEDS: AZTREONAM 2,000 MG in DEXTROSE 5% 100 ML IV SCH ×3 (00:50→17:24)
[2018-09-07] MEDS: IBUPROFEN 600 MG TAB PO PRN (01:51)
[2018-09-07] MEDS: SODIUM CHLORIDE 0.9% 1000ML 1,000 ML IV SCH ×3 (05:16→21:33)
[2018-09-07 06:39] LABS: Hemoglobin 12.6 g/dL (14.0-18.0); Mean Corpuscular Hgb Conc 33.2 g/dL (32-36); Mean Platelet Volume 9.9 fL (7.4-10.4); Platelet Count 183 K/uL (130-400); RDW Coefficient of Variation 13.2 % (11.5-14.5); RDW Standard Deviation 44.2 fL (36.4-46.3); Red Blood Count 4.13 M/uL (4.7-6.1); White Blood Count 25.84 K/uL (4.8-10.8)
[2018-09-07 06:49] LABS: Estimated Average Glucose 148 mg/dl
[2018-09-07 07:11] LABS: BUN Creatinine Ratio 12.5 (10-20); Calcium 8.2 mg/dl (8.5-10.1); Creatinine Clr Calc Pharmacy 169.6 ml/min; Est GFR (African American) 107.1; Est GFR (Non-African American) 92.4; Potassium 3.8 mmol/L (3.5-5.1)
[2018-09-07] MEDS: LOSARTAN POTASSIUM 25 MG TAB PO SCH ×2 (08:44→21:27)
[2018-09-07] MEDS: INSULIN ASPART 100 UNITS/ML 3 ML PEN SC SCH ×4 (08:50→21:27)
[2018-09-07] MEDS: INSULIN GLARGINE SOLOSTAR 100 UNITS/ML 3 ML PEN SC SCH ×2 (08:53→21:26)
[2018-09-07] MEDS ORDERED: INFLUENZA VIRUS QUAD VACCINE 0.5 ML SYR IM ONE (09:00)
[2018-09-07] MEDS ORDERED: INFLUENZA ADMINISTRATION CHARGE ONE (09:00)
[2018-09-07] MEDS ORDERED: SOD PHOSPHATE/SOD BIPHOSPHATE ENEMA 132 ML BTL PR PRN (09:54)
[2018-09-07] MEDS ORDERED: NON-FORMULARY PATIENT'S OWN MED PO SCH (10:00)
--- NOTE | 2018-09-07 10:28 | Infectious Disease Consult ---
Date of Consultation September 07, 2018 Assessment & Plan (1) Sepsis: Patient with clinical picture of sepsis likely from urinary tract infection in the setting of obstructive uropathy from urethral stricture. Pending blood and urine cultures, daptomycin and aztreonam appropriate therapy, will adjust antibiotics once final culture level. Will follow. (2) UTI (urinary tract infection): History of Present Illness Reason for Consultation: Sepsis, UTI, daptomycin Attending Physician: Leonardo Callahan MD History of Present Illness 48-year-old male with history of urethral stricture and recurrent urinary tract infections, status post recent cystoscopy with plans for surgery for urethral stricture in the near future, who came to the emergency room with 1 day history fever, shaking chills, and difficulty with urination. Symptoms similar to previous episodes of severe urinary tract infection. Has been started empirically on daptomycin and aztreonam, and blood and urine cultures are pending. Had previous urine culture positive for coagulase-negative staph. Denies any flank pain. CT scan without evidence of pyelonephritis. Allergies Allergy/AdvReac Type Severity Reaction Status Date / Time cephalexin Allergy Unknown VOMITING Verified 09/06/18 14:58 Tetracyclines AdvReac Mild fever, Verified 09/06/18 14:58 hallucinations, vomiting Home Medications Home Medications Medication Instructions Recorded Confirmed Type losartan 25 mg PO BID 08/19/18 09/06/18 History metformin 1,000 mg PO HS 08/19/18 09/06/18 History naproxen sodium 440 mg PO BID 08/19/18 09/06/18 History nitrofurantoin monohyd/m-cryst 100 mg PO BID 09/06/18 09/06/18 History Patient History Medical History Morbid obesity (Chronic) Nephrolithiasis (Chronic) Diabetes mellitus type 2, controlled (Chronic) Essential hypertension (Chronic) Anxiety (Chronic) has been prescribed meds, but does not take Low back pain (Chronic) Numbness of arm (Resolved) 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 in left arm and sometimes in right Surgical History History of urinary tract surgery (Chronic) 20 yr ago had urethral reconstruction - currently having decreased urinary flow Hx of oral surgery (Chronic) osteotomy Hx of tonsillectomy (Chronic) Family History Grandfather (Paternal) Diabetes mellitus Mother Diabetes mellitus Grandmother (Maternal) Diabetes mellitus Father Hypertension Social History Current Living Situation: Family Other Information That Helps Us Care for You: No Feels Safe at Home: Yes Safety Concerns: Feels Safe At This Time Smoking Status: Never smoker Tobacco Type: cigars Do You Dip or Chew Tobacco: No Second Hand Exposure: No Tobacco Cessation Education Requested by Patient: No Hx Alcohol Use: Yes Alcohol type: beer and wine Alcohol Intake Frequency: holidays/special occasions only Hx Substance Use: No Beliefs That Will Affect Care: None Preferred Language: Northern Irish Communication Ability: Effective Front End Software Developer Required: No Review of Systems All systems were reviewed and are negative except as per HPI Physical Exam 2 Vital Signs (Past 24 Hours): Last Vital Signs Temp 36.8 C 09/07/18 08:00 Pulse 83 09/07/18 08:35 Resp 18 09/07/18 08:00 BP 125/73 09/07/18 08:35 Pulse Ox 97 09/07/18 08:00 Constitutional: WD/WN, vitals as above + morbidly obese and comfortable; no acute distress Eyes: PERRL, conjunctivae normal, anicteric sclerae ENMT: external ear and nose normal, oropharynx normal Neck: trachea midline, no thyromegaly neck nontender Respiratory: normal respiratory effort, lungs clear to auscultation normal percussion; does not use accessory muscles Cardiovascular: Rate/Rhythm: regular rate and regular rhythm Heart Sounds: normal S1 and normal S2; no gallop, no murmur and no cardiac rub Vessels: normal peripheral pulses; no JVD Gastrointestinal (Abdomen): normal bowel sounds, soft, nontender, no hepatosplenomegaly Musculoskeletal: no cyanosis or clubbing, extremities motor strength 5/5 Spine: thoracic spine normal to inspection and lumbar spine normal to inspection ; no cervical spinal tenderness Skin: no rashes, warm and dry normal turgor; no lesions Neurologic: patellar DTR's 2+ bilat, sensation intact no focal motor deficits Psychiatric: A+Ox3, euthymic affect Orientation: cooperative Lymphatic: no cervical or axillary lymphadenopathy no inguinal lymphadenopathy Results & Data Laboratory Results Short CBC 09/06/18 09/07/18 Range/Units 15:48 06:25 WBC 17.85 H 25.84 H (4.8-10.8) K/uL Hgb 14.7 12.6 L (14.0-18.0) g/dL Hct 43.3 38.0 L (42-52) % Plt Count 216 183 (130-400) K/uL BMP 09/06/18 09/07/18 15:48 06:25 Sodium 135 L 136 Potassium 4.0 3.8 Chloride 101 104 Carbon Dioxide 26 27 BUN 12 12 Creatinine 1.04 0.96 Glucose 112 H 117 H Calcium 8.9 8.2 L Liver Function 09/06/18 Range/Units 15:48 Total Bilirubin 0.7 (0.2-1) mg/dl AST 45 H (15-37) U/L ALT 74 (12-78) U/L Alkaline Phosphatase 61 (45-117) U/L Albumin 3.9 (3.4-5.0) gm/dl Urine 09/06/18 Range/Units 14:40 Urine Color Yellow Urine Appearance Cloudy H (Clear) Urine pH 6.0 (4.5-7.5) Ur Specific [place] 1.028 (1.000-1.030) Urine Protein Negative (Negative) Urine Glucose (UA) 1+ H (Negative) Diagnostic Findings Name: PASCUAL MORE Acct: [id number] Status: ADM IN : 1970 [facility] [place] Date: 09/24 Age: 48 Sex: M Dis Date: Loc: ICU [address]/Bed: [facility] Spec: [id number] Collected: 09/06/18-155 Received: 09/06/18-[address]: Pascual Hammond MD Copy To: Romeo Soni MD, Urology Self, Referred Ahsan Moncada D.O. Source: Blood OV Order: Ordered: Blood Culture Comments: Comment Default is separate sites, same time Blood culture drawn venously from Left Hand. Procedure Result Verified Site Blood Culture PENDING Name: PASCUAL MORE : 1970 PAGE 1 Printed: 09/07/[address] OF THE ABDOMEN AND PELVIS WITH CONTRAST CLINICAL HISTORY: Fever. Urinary tract infection. Evaluate for pyelonephritis. COMPARISON STUDY: CT of the abdomen and pelvis February 14, 2018. TECHNIQUE: Following IV administration of 115 mL of Optiray-320, axial images of the abdomen and pelvis were obtained from the lung bases to the proximal femurs. Images were reviewed in the axial, sagittal, and coronal planes. IV contrast was administered without complication. Automated exposure control was utilized for the study. A dose lowering technique was utilized adhering to the principles of ALARA. CT DOSE: 2451.84 mGy.cm FINDINGS: Lung bases are clear. 2 right renal calculi measure up to 7 mm. There are no ureteral calculi. There is no hydronephrosis or hydroureter. There is no renal abscess. There is no CT evidence for pyelonephritis. The nephrograms are symmetric. Fatty infiltration of the liver is noted. The spleen, adrenal glands and pancreas are unremarkable. There is no evidence for a bowel obstruction. The appendix is normal. There is no ascites. No lymphadenopathy is present. There are prosthetic calcifications. No pneumatosis, free air or portal venous gas is present. No suspicious osseous lesions are noted. IMPRESSION: 1. Right-sided nephrolithiasis. No ureteral calculi or hydronephrosis. 2. No CT evidence for pyelonephritis. 3. Fatty liver. 4. No bowel obstruction. Normal appendix. Electronically signed by: Julio Oneill M.D. 09/06/2018 5:20 PM Dictated: 09/06/18 1714 Transcribed: 09/06/18 1714 _ (1) Sepsis Sepsis type: sepsis due to unspecified organism Qualified Code(s): A41.9 - Sepsis, unspecified organism (2) UTI (urinary tract infection) Encounter type: Hematuria presence: without hematuria Indwelling urinary catheter type: Urinary tract infection type: site unspecified Qualified Code( s): N39.0 - Urinary tract infection, site not specified
--- NOTE | 2018-09-07 13:14 | Hospitalist Progress Note ---
Date of Service September 07, 2018 Assessment & Plan (1) Sepsis: Sepsis: Likely source UTI Blood/Urine Culture: pending Continue IV daptomycin and aztreonam. Lactate levels normalized Avoid quinolones given h/o Achilles tendinitis. Appreciate ID input (2) UTI (urinary tract infection): H/O urethral stricture with anticipated surgery planned for 09/08. CT ABD: Right-sided nephrolithiasis. No ureteral calculi or hydronephrosis. No CT evidence for pyelonephritis. Continue IV antibiotics as above Consulted Urology (3) Nephrolithiasis: No ureteral calculi. Management per Urology. (4) Essential hypertension: Stable Continue losartan (5) Diabetes mellitus type 2, controlled: Hold metformin Hb A1c:6.8 Continue Lantus/NovoLog (6) Morbid obesity: BMI 51 AHA, diabetic diet. (7) DVT prophylaxis: No anticoagulants due to anticipated urologic procedure. SCD's. (8) Discharge planning issues: Plan to discharge home when stable Family Medicine follow-up with Dr. Moncada. Urology follow-up with Dr. Soni. Subjective Patient is seen and examined at bedside Reports dysuria Has chronic low back pain Denies chest pain, dyspnea, dizziness Offers no other complaints Physical Exam 2 Vital Signs (Past 24 Hours): Last Vital Signs Temp 36.9 C 09/07/18 11:53 Pulse 78 09/07/18 11:53 Resp 20 09/07/18 11:53 BP 106/60 09/07/18 11:53 Pulse Ox 95 09/07/18 11:53 Physical Exam: Physical Exam: Vitals signs as noted above General Appearance:Obese, no apparent distress Head: normocephalic, Atraumatic Eyes: normal inspection, EOMI Neck: supple, Trachea midline Respiratory/Chest: Decreased breath sounds, CTA Cardiovascular: S1, S2, No murmur Abdomen/GI:Soft, Non tender, Bowel sounds present Extremities/Musculoskelatal:normal inspection, no edema Neurologic/Psych:AAOX3, grossly no focal neurological deficits Skin: normal color, warm Results & Data Laboratory Results Short CBC 09/06/18 09/07/18 Range/Units 15:48 06:25 WBC 17.85 H 25.84 H (4.8-10.8) K/uL Hgb 14.7 12.6 L (14.0-18.0) g/dL Hct 43.3 38.0 L (42-52) % Plt Count 216 183 (130-400) K/uL BMP 09/06/18 09/07/18 15:48 06:25 Sodium 135 L 136 Potassium 4.0 3.8 Chloride 101 104 Carbon Dioxide 26 27 BUN 12 12 Creatinine 1.04 0.96 Glucose 112 H 117 H Calcium 8.9 8.2 L Liver Function 09/06/18 Range/Units 15:48 Total Bilirubin 0.7 (0.2-1) mg/dl AST 45 H (15-37) U/L ALT 74 (12-78) U/L Alkaline Phosphatase 61 (45-117) U/L Albumin 3.9 (3.4-5.0) gm/dl Urine 09/06/18 Range/Units 14:40 Urine Color Yellow Urine Appearance Cloudy H (Clear) Urine pH 6.0 (4.5-7.5) Ur Specific [place] 1.028 (1.000-1.030) Urine Protein Negative (Negative) Urine Glucose (UA) 1+ H (Negative) _ (1) Sepsis Sepsis type: sepsis due to unspecified organism Qualified Code(s): A41.9 - Sepsis, unspecified organism (2) UTI (urinary tract infection) Encounter type: Hematuria presence: without hematuria Indwelling urinary catheter type: Urinary tract infection type: site unspecified Qualified Code( s): N39.0 - Urinary tract infection, site not specified
[2018-09-07] MEDS: DAPTOmycin 775 MG in SYRINGE 0 ML IV SCH (15:13)
[2018-09-08] MEDS: AZTREONAM 2,000 MG in DEXTROSE 5% 100 ML IV SCH ×2 (01:07→10:45)
[2018-09-08] MEDS: SODIUM CHLORIDE 0.9% 1000ML 1,000 ML IV SCH ×4 (04:38→23:56)
[2018-09-08 06:25] LABS: Basophils # (auto) 0.05 K/uL (0-0.2); Basophils % (auto) 0.4 %; Eosinophils # (auto) 0.22 K/uL (0-0.5); Eosinophils % (auto) 1.8 %; Hemoglobin 12.3 g/dL (14.0-18.0); Immature Granulocytes # (auto) 0.05 K/uL (0.00-0.02); Immature Granulocytes % (auto) 0.4 %; Lymphocytes # (auto) 2.15 K/uL (1.2-3.4); Mean Corpuscular Hgb Conc 33.2 g/dL (32-36); Mean Corpuscular Volume 91.4 fL (80-100); Mean Platelet Volume 9.9 fL (7.4-10.4); Monocytes # (auto) 1.75 K/uL (0.11-0.59); Monocytes % (auto) 14.6 %; Neutrophils # (auto) 7.75 K/uL (1.4-6.5); Neutrophils % (auto) 64.8 %; Platelet Count 164 K/uL (130-400); RDW Coefficient of Variation 13.1 % (11.5-14.5); Red Blood Count 4.05 M/uL (4.7-6.1); White Blood Count 11.97 K/uL (4.8-10.8)
[2018-09-08 06:48] LABS: Calcium 8.3 mg/dl (8.5-10.1); Creatinine Clr Calc Pharmacy 223.1 ml/min; Est GFR (African American) 126.2; Est GFR (Non-African American) 108.9; Magnesium 2.2 mg/dl (1.8-2.4); Potassium 3.5 mmol/L (3.5-5.1)
--- NOTE | 2018-09-08 07:52 | Anesthesiology Consultation ---
Date of Service September 08, 2018 Assessment & Plan Chart Review Chart Review: Acceptable Risk for Surgery Consults Requested none ASA ASA3 Proposed Anesthesia Anesthesia Type: General Risk / Benefits Reviewed With: PT / POA / Parent / Guardian, Accepts Plan and Informed Consent Obtained NPO Date Last Intake of Fluids: 09/08/18 Time Last Intake of Fluids: 02:00 Date Last Intake of Solids: 09/07/18 Time Last Intake of Solids: 16:30 History Surgery Operation Date: 09/08/18 08:15 Proposed Procedures p Optical Internal Urethrotomy, Cystoscopy - Romeo Soni MD Height/Weight Height: 6 ft 4 in Weight: 191.9 kg Allergies Allergy/AdvReac Type Severity Reaction Status Date / Time cephalexin Allergy Unknown VOMITING Verified 09/06/18 14:58 Tetracyclines AdvReac Mild fever, Verified 09/06/18 14:58 hallucinations, vomiting Medications Home Medications Medication Instructions Recorded Confirmed Last Taken losartan 25 mg PO BID 08/19/18 09/06/18 Unknown metformin 1,000 mg PO HS 08/19/18 09/06/18 Unknown naproxen sodium 440 mg PO BID 08/19/18 09/06/18 Unknown nitrofurantoin monohyd/m-cryst 100 mg PO BID 09/06/18 09/06/18 Unknown Active Medications Generic Name Dose Route Start Last Admin Trade Name Ronniq PRN Reason Stop Dose Admin Acetaminophen 650 mg 09/06/18 20:10 09/07/18 08:46 Tylenol PO 10/06/18 20:09 650 mg Q4H PRN Administration Pain or Fever Aztreonam 2,000 mg/ Dextrose 110 mls @ 100 mls/hr 09/06/18 17:00 09/08/18 02: 51 IV 09/08/18 16:59 Infused Q8H DIMAS Infusion Sodium Chloride 1,000 mls @ 125 mls/hr 09/07/18 03:30 09/08/18 04:38 Nss 1000ml IV 10/07/18 03:29 125 mls/hr .Q8H DIMAS Administration Daptomycin 775 mg/ Syringe 15.5 mls @ 7.75 mls/min 09/07/18 16:00 09/07/18 15 :13 IV 09/17/18 15:59 7.75 mls/min DAILY@16 DIMAS Administration Ibuprofen 600 mg 09/06/18 21:15 09/07/18 01:51 Motrin PO 10/06/18 21:14 600 mg Q6H PRN Administration Pain or Fever Insulin Aspart 0 units 09/06/18 22:00 09/07/18 21:27 Novolog Flexpen SC 10/06/18 21:59 Not Given ACHS DIMAS Insulin Glargine 0 units 09/07/18 09:00 09/07/18 21:26 Lantus Solostar Pen SC 10/07/18 08:59 Not Given BID DIMAS Protocol Ioversol 116 ml 09/06/18 17:08 09/06/18 17:08 Optiray 320 125ml IV 09/10/18 17:07 116 ml ONCE PRN Administration Interaction Checking Losartan Potassium 25 mg 09/07/18 09:00 09/07/18 21:27 Cozaar PO 10/07/18 08:59 25 mg BID DIMAS Administration Past Medical History Medical History Morbid obesity (Chronic) Nephrolithiasis (Chronic) Diabetes mellitus type 2, controlled (Chronic) Essential hypertension (Chronic) Anxiety (Chronic) has been prescribed meds, but does not take Low back pain (Chronic) Numbness of arm (Resolved) 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 in left arm and sometimes in right Past Family History Family History Grandfather (Paternal) Diabetes mellitus Mother Diabetes mellitus Grandmother (Maternal) Diabetes mellitus Father Hypertension Past Surgical History Surgical History History of urinary tract surgery (Chronic) 20 yr ago had urethral reconstruction - currently having decreased urinary flow Hx of oral surgery (Chronic) osteotomy Hx of tonsillectomy (Chronic) Past Anesthesia History No Hx of Anesthesia Complications History of PONV No Social History Smoking Status: Never smoker tobacco type: cigars Smoking cigarettes per day: occasional Do You Dip or Chew Tobacco: No Hx Alcohol Use: Yes Alcohol type: beer and wine alcohol intake frequency: holidays/special occasions only Hx Substance Use: No Exercise / Class Metabolic Activity II 4-5 Yardwork/Stairs/Walk up hill Physical Exam Vital Signs Last Vital Signs Temp 98.8 F 09/08/18 03:25 Pulse 74 09/08/18 03:25 Resp 16 09/08/18 03:25 BP 117/63 09/08/18 03:25 Pulse Ox 95 09/08/18 03:25 ENMT Mouth: + poor dentition Thyromental Distance: > or= 3.5 Finger Breadths Mallampati Class: III Neck normal visual inspection Respiratory normal respiratory effort Auscultation: lungs clear to auscultation bilaterally Cardiovascular Rate/Rhythm: regular rate and regular rhythm Testing Laboratory Results 09/08/18 06:02 09/08/18 06:02 Hemoglobin A1c 6.8 % (4.5-5.6) H 09/07/18 06:25 Urine Color Yellow 09/06/18 14:40 Urine Appearance Cloudy (Clear) H 09/06/18 14:40 Urine pH 6.0 (4.5-7.5) 09/06/18 14:40 Ur Specific [place] 1.028 (1.000-1.030) 09/06/18 14:40 Urine Protein Negative (Negative) 09/06/18 14:40 Urine Glucose (UA) 1+ (Negative) H 09/06/18 14:40 Urine Ketones Negative (Negative) 09/06/18 14:40 Urine Nitrite Positive (Negative) H 09/06/18 14:40 Ur Leukocyte Esterase 2+ (Negative) H 09/06/18 14:40 Urine WBC (Auto) >30 /hpf (0-5) H 09/06/18 14:40 Urine RBC (Auto) 0-4 /hpf (0-4) 09/06/18 14:40 U Hyaline Cast (Auto) 5-10 /lpf (0-5) H 09/06/18 14:40 U Epithel Cells (Auto) 10-20 /lpf (0-5) H 09/06/18 14:40 Urine Bacteria (Auto) 2+ (Negative) H 09/06/18 14:40 09/06/18 14:40 Urine Culture - Preliminary Urine,Clean Catch Coag negative Staphylococcus 09/06/18 15:57 Blood Culture - Preliminary Blood No growth to date. 09/06/18 15:48 Blood Culture - Preliminary Blood Gram positive cocci 09/08/18 09/07/18 07:43 21:12 POC Glucose 104 H 95
--- NOTE | 2018-09-08 08:12 | Urology Consultation ---
Date of Consultation September 08, 2018 Assessment & Plan (1) Urethral stricture: History of Present Illness Reason for Consultation: UTI, stricture. Attending Physician: Leonardo Callahan MD History of Present Illness 48 yo male with a known history of recurrent UTI, stricture. His outpatient and inpatient chart is reviewed. He was admitted for urosepsis. His voiding remains unimproved, stricture in place. He is scheduled for OIU today, on broad spectrum antibiotics with clinical improvement, afebrile recently, WBC improving , lactate normalized. He feels much better than on admission. Family with patient this AM. Allergies Allergy/AdvReac Type Severity Reaction Status Date / Time cephalexin Allergy Unknown VOMITING Verified 09/06/18 14:58 Tetracyclines AdvReac Mild fever, Verified 09/06/18 14:58 hallucinations, vomiting Home Medications Home Medications Medication Instructions Recorded Confirmed Type losartan 25 mg PO BID 08/19/18 09/06/18 History metformin 1,000 mg PO HS 08/19/18 09/06/18 History naproxen sodium 440 mg PO BID 08/19/18 09/06/18 History nitrofurantoin monohyd/m-cryst 100 mg PO BID 09/06/18 09/06/18 History Patient History Medical History Morbid obesity (Chronic) Nephrolithiasis (Chronic) Diabetes mellitus type 2, controlled (Chronic) Essential hypertension (Chronic) Stricture, urethra Anxiety (Chronic) has been prescribed meds, but does not take Low back pain (Chronic) Numbness of arm (Resolved) 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 in left arm and sometimes in right Surgical History History of urinary tract surgery (Chronic) 20 yr ago had urethral reconstruction - currently having decreased urinary flow Hx of oral surgery (Chronic) osteotomy Hx of tonsillectomy (Chronic) Family History Grandfather (Paternal) Diabetes mellitus Mother Diabetes mellitus Grandmother (Maternal) Diabetes mellitus Father Hypertension Social History Current Living Situation: Family Other Information That Helps Us Care for You: No Feels Safe at Home: Yes Safety Concerns: Feels Safe At This Time Smoking Status: Never smoker Tobacco Type: cigars Cigarettes per Day: occasional Do You Dip or Chew Tobacco: No Hx Alcohol Use: Yes Alcohol type: beer and wine Alcohol Intake Frequency: holidays/special occasions only Hx Substance Use: No Beliefs That Will Affect Care: None Preferred Language: [place] Communication Ability: Effective Acetylene Torch Burner Required: No Physical Exam 2 Vital Signs (Past 24 Hours): Last Vital Signs Temp 36.8 C 09/08/18 07:50 Pulse 83 09/08/18 07:50 Resp 20 09/08/18 07:50 BP 141/75 H 09/08/18 07:50 Pulse Ox 95 09/08/18 07:50 Constitutional: + obese Neck: trachea midline; no anterior neck swelling Respiratory: normal respiratory effort; no respiratory distress and does not use accessory muscles Cardiovascular: Vessels: radial pulses present Gastrointestinal (Abdomen): Inspection/Auscultation: abdomen normal to inspection; abdomen not distended and no abdominal edema Skin: normal turgor Neurologic: CN's II-XI intact bilaterally and awake; not obtunded Psychiatric: Orientation: oriented x 3 and oriented to time Lymphatic: + lymphadenopathy
[2018-09-08] MEDS ORDERED: ePHEDrine sulfate 50 MG/ML AMP IV PRN (08:42)
[2018-09-08] MEDS ORDERED: ATROPINE SULFATE 0.1 MG/ML 5ML SYR IV PRN (08:42)
[2018-09-08] MEDS ORDERED: ONDANSETRON INJ 2 MG/ML 2 ML VIAL IV PRN (08:42)
[2018-09-08] MEDS ORDERED: fentaNYL citrate 100 MCG/2 ML VIAL IV PRN (08:42)
--- NOTE | 2018-09-08 08:44 | Operative Report ---
Post Operative Report Date of Surgery September 08, 2018 Pre & Post Diagnosis Operation Date: 09/08/18 08:15 Preoperative diagnosis: History of urethral stricture and recurrent UTI Postoperative diagnosis: Same. Procedure: Cystoscopy, optical internal urethrotomy, fulguration of urethral bleeders and Madden catheter placement. Surgeon: Dr. Romeo Soni. Anesthesia: General anesthesia with endotracheal intubation. Drains left in place: 20 [place] Madden with 10 cc of sterile water in the balloon. Specimen sent to pathology: Urine for culture and sensitivity EBL: 15 cc. Complications: None. Findings: Strictured area well opened after incision. Procedure Operation Date: 09/08/18 08:15 Brief history: Patient is a 48-year-old male with a history of recurrent urinary tract infection and a proximal bulbar urethral stricture. He was scheduled for outpatient optical internal urethrotomy today but was admitted 2 days ago for urinary tract infection and urosepsis. Please see urology consultation from this morning in outpatient notes for further details. Patient has been covered with broad-spectrum antibiotics and clinically is improving. Decision is to proceed with internal urethrotomy today to help avoid these types of situations in the future. Risks and benefits including the risk of worsening infection have been reviewed with the patient and family who vocalized good understanding of the treatment plan. SCDs used for DVT prophylaxis, intravenous daptomycin and aztreonam coverage has been present. Procedure: Patient was properly identified and brought into the operative suite after identification of appropriate consent in the chart. General anesthesia with endotracheal vision was initiated and patient was prepped and draped in the standard fashion for this procedure. Full timeout procedure was followed. Urethrotome cystoscope was introduced into the urethra under direct visualization using a visual transit mixer operator. Sensor tip wire was advanced through the aperture of the proximal strictured urethra after identification of calcified hairs within the scrotal skin patch as previously noted on office cystoscopy. A straight blade and a half younger blade were used to incise the strictured area at the 12 o'clock position allowing for easy passage of the scope into the bladder. Bladder was surveyed and noted to have clear urine and a lack of significant inflammation within the bladder. Grade 2 trabeculation with mild mucosal inflammation was noted. No tumors or stones were appreciated. Ureteral orifices were appreciated with normal anatomic position bilaterally. On removal of the scope and area of bleeding from an incised vessel within the urethra stricture was noted. Irrigation was changed to sorbitol and a Bugbee cautery was used selectively to fulgurate the urethral bleeder and obtain excellent hemostasis. No remaining bleeding areas were appreciated. Cystoscope was removed and a 20 [place] catheter was introduced over the wire without difficulties and with drainage of clear irrigant. 10 cc of sterile water were placed within the balloon and anesthesia was reversed. Patient was transferred to the recovery room in stable condition. Follow-up CARE: Patient be readmitted to the floor for further intravenous antibiotic coverage. Once his final cultures are resulted he should be stable for discharge home with 10-14 days of oral antibiotics. Outpatient appointments as scheduled for trial of void and postoperative check with our service. Care is discussed with the patient's family postoperatively today as had been reviewed with the patient previously. Surgeon Romeo Soni MD Network Internship None Estimated Blood Loss 15 Findings Consistent with Post-Op Diagnosis Specimens Urine for culture and sensitivity I attest to the content of the Intraoperative Record and any orders documented therein. Any exceptions are noted below.
[2018-09-08] MEDS ORDERED: PHENAZOPYRIDINE HCL 200 MG TAB PO PRN (09:14)
[2018-09-08] MEDS: INSULIN ASPART 100 UNITS/ML 3 ML PEN SC SCH ×4 (09:21→20:43)
--- NOTE | 2018-09-08 09:52 | Anesthesiology Progress Note ---
Date of Service September 08, 2018 Anesthesia Post Procedure Vital Signs Vital Signs: Temp Pulse Pulse Resp BP BP Pulse Ox 09/08/18 09:50 82 18 135/72 98 09/08/18 09:40 84 20 125/66 97 09/08/18 09:30 90 20 115/63 97 09/08/18 09:24 97.5 F L 93 H 20 152/87 H 91 09/08/18 07:50 98.2 F 83 20 141/75 H 95 09/08/18 07:30 83 09/08/18 03:25 98.8 F 74 16 117/63 95 09/07/18 23:10 98.2 F 79 18 120/59 L 95 09/07/18 22:20 74 09/07/18 19:44 98.6 F 78 20 104/64 96 09/07/18 15:23 98.2 F 76 20 114/56 L 96 09/07/18 15:15 79 09/07/18 11:53 98.4 F 78 20 106/60 95 Pain Intensity Bilateral Back: Pain Intensity: 3 Notes Mental Status: alert / awake / arousable and participated in evaluation Patient Amnestic to Procedure: Yes Nausea / Vomiting: adequately controlled Pain: adequately controlled Airway Patency, RR, SpO2: stable & adequate BP & HR: stable & adequate Hydration State: stable & adequate Anesthetic Complications: no major complications apparent and Pt Satisfied with anesthetic care
[2018-09-08] MEDS: INSULIN GLARGINE SOLOSTAR 100 UNITS/ML 3 ML PEN SC SCH ×2 (11:19→20:44)
[2018-09-08] MEDS: LOSARTAN POTASSIUM 25 MG TAB PO SCH ×2 (11:36→20:46)
[2018-09-08] MEDS: IBUPROFEN 200 MG TAB PO PRN ×2 (11:38→20:44)
--- NOTE | 2018-09-08 14:17 | Infectious Disease Progress Nt ---
Date of Service September 08, 2018 Assessment & Plan (1) Sepsis: Patient with clinical picture of sepsis from urinary tract infection in the setting of obstructive uropathy from urethral stricture. Patient is status post dilation of stricture, await final urine cultures, to continue on daptomycin and aztreonam for now. Will follow. (2) UTI (urinary tract infection): Subjective Patient seen in follow-up for sepsis with urinary tract infection. Patient now status post cystoscopy with dilation of urethral stricture. Blood cultures growing coag negative staph and probable diphtheroids, urine with similar organisms. Currently afebrile and feeling better. Tolerating antibiotic without apparent difficulty. Review of Systems All systems reviewed & are unremarkable except as noted in HPI & below Physical Exam 2 Vital Signs (Past 24 Hours): Last Vital Signs Temp 36.6 C 09/08/18 12:29 Pulse 80 09/08/18 12:29 Resp 20 09/08/18 12:29 BP 136/76 09/08/18 12:29 Pulse Ox 93 09/08/18 12:29 Constitutional: WD/WN, vitals as above + morbidly obese and comfortable; no acute distress Eyes: PERRL, conjunctivae normal, anicteric sclerae ENMT: external ear and nose normal, oropharynx normal Neck: trachea midline, no thyromegaly neck nontender Respiratory: normal respiratory effort, lungs clear to auscultation normal percussion; does not use accessory muscles Cardiovascular: Rate/Rhythm: regular rate and regular rhythm Heart Sounds: normal S1 and normal S2; no gallop, no murmur and no cardiac rub Vessels: normal peripheral pulses; no JVD Gastrointestinal (Abdomen): normal bowel sounds, soft, nontender, no hepatosplenomegaly Musculoskeletal: no cyanosis or clubbing, extremities motor strength 5/5 Spine: thoracic spine normal to inspection and lumbar spine normal to inspection ; no cervical spinal tenderness Skin: no rashes, warm and dry normal turgor; no lesions Neurologic: patellar DTR's 2+ bilat, sensation intact no focal motor deficits Psychiatric: A+Ox3, euthymic affect Orientation: cooperative Lymphatic: no cervical or axillary lymphadenopathy no inguinal lymphadenopathy Results & Data Laboratory Results Short CBC 09/08/18 Range/Units 06:02 WBC 11.97 H D (4.8-10.8) K/uL Hgb 12.3 L (14.0-18.0) g/dL Hct 37.0 L (42-52) % Plt Count 164 (130-400) K/uL BMP 09/08/18 06:02 Sodium 136 Potassium 3.5 Chloride 106 Carbon Dioxide 23 BUN 10 Creatinine 0.73 Glucose 102 H Calcium 8.3 L Diagnostic Findings Microbiology 09/08/18 08:54 Urine,Suprapubic Gram Stain - Final 09/06/18 14:40 Urine,Clean Catch Urine Culture - Final Coag negative Staphylococcus Diptheroids 09/06/18 15:48 Blood Blood Culture - Preliminary Coag neg staph not lugdunensis Gram positive bacilli 09/06/18 15:57 Blood Blood Culture - Preliminary Gram positive bacilli _ (1) Sepsis Sepsis type: sepsis due to unspecified organism Qualified Code(s): A41.9 - Sepsis, unspecified organism (2) UTI (urinary tract infection) Encounter type: Hematuria presence: without hematuria Indwelling urinary catheter type: Urinary tract infection type: site unspecified Qualified Code( s): N39.0 - Urinary tract infection, site not specified
[2018-09-08] MEDS: DAPTOmycin 775 MG in SYRINGE 0 ML IV SCH (15:52)
[2018-09-08] MEDS: IBUPROFEN 600 MG TAB PO PRN (15:53)
--- NOTE | 2018-09-08 16:59 | Hospitalist Progress Note ---
Date of Service September 08, 2018 Assessment & Plan (1) Sepsis: Sepsis: Likely source UTI Blood culture:Gram negative bacilli Urine Culture: Coag negative Staph Continue IV daptomycin and aztreonam as per ID Lactate levels normalized Avoid quinolones given h/o Achilles tendinitis. Appreciate ID input (2) UTI (urinary tract infection): Urethral stricture CT ABD: Right-sided nephrolithiasis. No ureteral calculi or hydronephrosis. No CT evidence for pyelonephritis. S/P Internal Urethrotomy, duong catheter placement on 09/08/18 Continue IV antibiotics as above Appreciate Urology help (3) Nephrolithiasis: No ureteral calculi. Management per Urology. (4) Essential hypertension: Stable Continue losartan (5) Diabetes mellitus type 2, controlled: Hold metformin Hb A1c:6.8 Continue Lantus/NovoLog (6) Morbid obesity: BMI 51 AHA, diabetic diet. (7) DVT prophylaxis: No anticoagulants due to anticipated urologic procedure. SCD's. (8) Discharge planning issues: Plan to discharge home when stable Family Medicine follow-up with Dr. Moncada. Urology follow-up with Dr. Soni. Subjective Patient is seen and examined at bedside Patient had Urethrotomy today Reports mild discomfort at urinary catheter site Offers no other complaints Has chronic low back pain Denies chest pain, dyspnea, dizziness Physical Exam 2 Vital Signs (Past 24 Hours): Last Vital Signs Temp 37.0 C 09/08/18 15:38 Pulse 78 09/08/18 15:38 Resp 18 09/08/18 15:38 BP 124/82 09/08/18 15:38 Pulse Ox 95 09/08/18 15:38 Physical Exam: Physical Exam: Vitals signs as noted above General Appearance:Obese, no apparent distress Head: normocephalic, Atraumatic Eyes: normal inspection, EOMI Neck: supple, Trachea midline Respiratory/Chest: Decreased breath sounds, CTA Cardiovascular: S1, S2, No murmur Abdomen/GI:Soft, Non tender, Bowel sounds present Extremities/Musculoskelatal:normal inspection, no edema Neurologic/Psych:AAOX3, grossly no focal neurological deficits Skin: normal color, warm Results & Data Laboratory Results Short CBC 09/08/18 Range/Units 06:02 WBC 11.97 H D (4.8-10.8) K/uL Hgb 12.3 L (14.0-18.0) g/dL Hct 37.0 L (42-52) % Plt Count 164 (130-400) K/uL BMP 09/08/18 06:02 Sodium 136 Potassium 3.5 Chloride 106 Carbon Dioxide 23 BUN 10 Creatinine 0.73 Glucose 102 H Calcium 8.3 L _ (1) Sepsis Sepsis type: sepsis due to unspecified organism Qualified Code(s): A41.9 - Sepsis, unspecified organism (2) UTI (urinary tract infection) Encounter type: Hematuria presence: without hematuria Indwelling urinary catheter type: Urinary tract infection type: site unspecified Qualified Code( s): N39.0 - Urinary tract infection, site not specified
[2018-09-08] MEDS ORDERED: ALPRAZolam 0.5 MG TABLET PO STA (18:08)
[2018-09-09 06:11] LABS: Basophils # (auto) 0.02 K/uL (0-0.2); Basophils % (auto) 0.2 %; Eosinophils # (auto) 0.21 K/uL (0-0.5); Eosinophils % (auto) 1.9 %; Hematocrit (blood only) 36.8 % (42-52); Hemoglobin 12.2 g/dL (14.0-18.0); Immature Granulocytes # (auto) 0.07 K/uL (0.00-0.02); Immature Granulocytes % (auto) 0.6 %; Lymphocytes % (auto) 19.8 %; Mean Corpuscular Hgb Conc 33.2 g/dL (32-36); Mean Corpuscular Volume 91.8 fL (80-100); Monocytes # (auto) 1.36 K/uL (0.11-0.59); Monocytes % (auto) 12.3 %; Neutrophils # (auto) 7.24 K/uL (1.4-6.5); Neutrophils % (auto) 65.2 %; Platelet Count 181 K/uL (130-400); RDW Standard Deviation 43.5 fL (36.4-46.3); Red Blood Count 4.01 M/uL (4.7-6.1)
[2018-09-09 06:45] LABS: BUN Creatinine Ratio 11.4 (10-20); Creatinine Clr Calc Pharmacy 217.1 ml/min; Est GFR (African American) 124.8; Est GFR (Non-African American) 107.7; Potassium 3.7 mmol/L (3.5-5.1)
[2018-09-09] MEDS: SODIUM CHLORIDE 0.9% 1000ML 1,000 ML IV SCH (07:45)
[2018-09-09] MEDS: LOSARTAN POTASSIUM 25 MG TAB PO SCH (07:48)
[2018-09-09] MEDS: INSULIN ASPART 100 UNITS/ML 3 ML PEN SC SCH ×2 (07:49→11:59)
--- NOTE | 2018-09-09 09:36 | Urology Consultation ---
Date of Consultation September 09, 2018 History of Present Illness Attending Physician: Leonardo Callaahn MD MEDICATIONS: Resume previous medications unless instructed otherwise by your surgeon. Resume pre-[facility] medication except for aspirin, coumadin or other blood thinners. __ Toradol 10 mg every 6 hours for initial pain. __ Lortab 5 mg 1-2 every 4 hours for pain. __ Percocet 5 mg 1-2 every 4 hours for pain. __ Macrodantin 50 mg x 3 a day. __ Flomax 1 tab daily one half (1/2) hour after supper. SPECIAL CARE INSTRUCTIONS: 1. Get KUB (x-ray) __ day before or day of office visit and bring x-ray to office __ get x-ray 2 days before and tell office you are getting x-rays when you call for the appointment. 2. Strain ALL urine. 3. Please call if you have a fever, chills, severe pain, or constant dribbling of urine. 4. Office phone number . Laboratory Tests 09/06/18 15:48 WBC 17.85 H FOLLOW UP VISIT: Please call the office to schedule a follow-up appointment at . History of Present Illness [id number] Allergies Allergy/AdvReac Type Severity Reaction Status Date / Time cephalexin Allergy Unknown VOMITING Verified 09/06/18 14:58 Tetracyclines AdvReac Mild fever, Verified 09/06/18 14:58 hallucinations, vomiting Home Medications Home Medications Medication Instructions Recorded Confirmed Type losartan 25 mg PO BID 08/19/18 09/06/18 History metformin 1,000 mg PO HS 08/19/18 09/06/18 History naproxen sodium 440 mg PO BID 08/19/18 09/06/18 History nitrofurantoin monohyd/m-cryst 100 mg PO BID 09/06/18 09/06/18 History Patient History Medical History Morbid obesity (Chronic) Nephrolithiasis (Chronic) Diabetes mellitus type 2, controlled (Chronic) Essential hypertension (Chronic) Stricture, urethra Anxiety (Chronic) has been prescribed meds, but does not take Low back pain (Chronic) Numbness of arm (Resolved) 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 in left arm and sometimes in right Surgical History History of urinary tract surgery (Chronic) 20 yr ago had urethral reconstruction - currently having decreased urinary flow Hx of oral surgery (Chronic) osteotomy Hx of tonsillectomy (Chronic) Family History Grandfather (Paternal) Diabetes mellitus Mother Diabetes mellitus Grandmother (Maternal) Diabetes mellitus Father Hypertension Social History Current Living Situation: Family Other Information That Helps Us Care for You: No Feels Safe at Home: Yes Safety Concerns: Feels Safe At This Time Smoking Status: Never smoker Tobacco Type: cigars Cigarettes per Day: occasional Do You Dip or Chew Tobacco: No Hx Alcohol Use: Yes Alcohol type: beer and wine Alcohol Intake Frequency: holidays/special occasions only Hx Substance Use: No Beliefs That Will Affect Care: None Preferred Language: Mexican Communication Ability: Effective Brainer Required: No Physical Exam 2 Vital Signs (Past 24 Hours): Last Vital Signs Temp 37.1 C 09/09/18 07:15 Pulse 89 09/09/18 07:15 Resp 18 09/09/18 07:15 BP 127/73 09/09/18 07:15 Pulse Ox 94 09/09/18 07:15
--- NOTE | 2018-09-09 09:53 | Urology Progress Note ---
Date of Service September 09, 2018 Assessment & Plan (1) Urethral stricture: A/P 48 yo male POD#1 s/p OIU. Doing well. Outpatient appointments in place for trial of void and office visit. Convert to oral antibiotics once final sensitivities available if sensitive, consider 1-2 weeks of therapy. Intraop findings and expected postop course reviewed with patient who vocalizes understanding of the treatment plan. Queries answered. Thank you for allowing us to participate in this patient's care. Please recall our service as needed with any questions or concerns. Subjective 48 yo male POD#1 s/p OIU. Duong in place, patient c/o typical duong bother. Labwork and hospitalist and ID notes reviewed, VSS, afebrile. Cultures pending this AM. No other c/o. Constitutional: no fever and no chills Eyes: no discharge Ear, Nose, Mouth, Throat: no ear pain Respiratory: no hemoptysis Cardiovascular: no chest pain Gastrointestinal: no abdominal pain, no bloating, no nausea and no vomiting Genitourinary (Male): + dysuria Integumentary: no acne and no boil Neurologic: no gait abnormality Psychiatric: no depression Physical Exam 2 Vital Signs (Past 24 Hours): Last Vital Signs Temp 37.1 C 09/09/18 07:15 Pulse 89 09/09/18 07:15 Resp 18 09/09/18 07:15 BP 127/73 09/09/18 07:15 Pulse Ox 94 09/09/18 07:15 Constitutional: + obese; not ill appearing Neck: trachea midline; no anterior neck swelling Respiratory: normal respiratory effort; no respiratory distress and does not use accessory muscles Cardiovascular: Vessels: radial pulses present Gastrointestinal (Abdomen): Inspection/Auscultation: abdomen normal to inspection; abdomen not distended and no abdominal edema Skin: normal turgor Neurologic: CN's II-XI intact bilaterally and awake; not obtunded Psychiatric: Orientation: oriented x 3 and oriented to time Lymphatic: + lymphadenopathy
--- NOTE | 2018-09-09 10:20 | Anesthesiology Progress Note ---
Date of Service September 09, 2018 Anesthesia Post Procedure Vital Signs Vital Signs: Temp Pulse Pulse Resp BP BP Pulse Ox 09/09/18 07:15 37.1 C 89 18 127/73 94 09/09/18 03:26 36.7 C 80 18 94 09/08/18 23:21 36.8 C 81 16 104/61 95 09/08/18 22:20 78 09/08/18 19:26 37.0 C 83 18 113/69 96 09/08/18 15:38 37.0 C 78 18 124/82 95 09/08/18 12:29 36.6 C 80 20 136/76 93 Notes Mental Status: alert / awake / arousable and participated in evaluation Patient Amnestic to Procedure: Yes Nausea / Vomiting: adequately controlled Pain: adequately controlled Airway Patency, RR, SpO2: stable & adequate BP & HR: stable & adequate Hydration State: stable & adequate Anesthetic Complications: no major complications apparent and Pt Satisfied with anesthetic care
[2018-09-09] MEDS: INSULIN GLARGINE SOLOSTAR 100 UNITS/ML 3 ML PEN SC SCH (11:25)
--- NOTE | 2018-09-09 15:40 | Infectious Disease Progress Nt ---
Date of Service September 09, 2018 Assessment & Plan (1) Sepsis: Patient with clinical picture of sepsis from urinary tract infection in the setting of obstructive uropathy from urethral stricture. Patient is status post dilation of stricture, with cultures growing coag negative staph and diphtheroids. Agree the patient can be transitioned to oral antibiotics, and given allergies and sensitivities, would recommend Zyvox 600 mg twice daily for 2 weeks. Would like to see in the office at the end of this therapy to assess need for any further treatment. (2) UTI (urinary tract infection): Subjective Patient seen in follow-up for sepsis with urinary tract infection. Patient status post cystoscopy with dilation of urethral stricture. Blood cultures growing coag negative staph and probable diphtheroids, urine with similar organisms. Currently afebrile and feeling better. Tolerating antibiotic without apparent difficulty. Review of Systems All systems reviewed & are unremarkable except as noted in HPI & below Physical Exam 2 Vital Signs (Past 24 Hours): Last Vital Signs Temp 37.2 C 09/09/18 15:16 Pulse 78 09/09/18 15:16 Resp 18 09/09/18 15:16 BP 152/82 H 09/09/18 15:16 Pulse Ox 94 09/09/18 15:16 Constitutional: WD/WN, vitals as above + morbidly obese and comfortable; no acute distress Eyes: PERRL, conjunctivae normal, anicteric sclerae ENMT: external ear and nose normal, oropharynx normal Neck: trachea midline, no thyromegaly neck nontender Respiratory: normal respiratory effort, lungs clear to auscultation normal percussion; does not use accessory muscles Cardiovascular: Rate/Rhythm: regular rate and regular rhythm Heart Sounds: normal S1 and normal S2; no gallop, no murmur and no cardiac rub Vessels: normal peripheral pulses; no JVD Gastrointestinal (Abdomen): normal bowel sounds, soft, nontender, no hepatosplenomegaly Musculoskeletal: no cyanosis or clubbing, extremities motor strength 5/5 Spine: thoracic spine normal to inspection and lumbar spine normal to inspection ; no cervical spinal tenderness Skin: no rashes, warm and dry normal turgor; no lesions Neurologic: patellar DTR's 2+ bilat, sensation intact no focal motor deficits Psychiatric: A+Ox3, euthymic affect Orientation: cooperative Lymphatic: no cervical or axillary lymphadenopathy no inguinal lymphadenopathy Results & Data Laboratory Results Short CBC 09/09/18 Range/Units 05:55 WBC 11.10 H (4.8-10.8) K/uL Hgb 12.2 L (14.0-18.0) g/dL Hct 36.8 L (42-52) % Plt Count 181 (130-400) K/uL BMP 09/09/18 05:55 Sodium 138 Potassium 3.7 Chloride 109 H Carbon Dioxide 24 BUN 9 Creatinine 0.75 Glucose 105 H Calcium 8.0 L Diagnostic Findings Microbiology 09/08/18 08:54 Urine,Suprapubic Gram Stain - Final 09/08/18 08:54 Urine,Suprapubic Aerobic and Anaerobic Culture - Preliminary No growth to date. 09/06/18 15:57 Blood Blood Culture - Final Diptheroids 09/06/18 15:48 Blood Blood Culture - Final Coag neg staph not lugdunensis Diptheroids 09/06/18 14:40 Urine,Clean Catch Urine Culture - Final Coag negative Staphylococcus Diptheroids _ (1) UTI (urinary tract infection) Encounter type: Hematuria presence: without hematuria Indwelling urinary catheter type: Urinary tract infection type: site unspecified Qualified Code( s): N39.0 - Urinary tract infection, site not specified (2) Sepsis Sepsis type: sepsis due to unspecified organism Qualified Code(s): A41.9 - Sepsis, unspecified organism
--- NOTE | 2018-09-09 15:46 | Hospitalist Progress Note ---
Date of Service September 09, 2018 Assessment & Plan (1) Sepsis: Sepsis: source UTI Blood culture:Coag negative Staph , Diptheroids Urine Culture: Coag negative Staph, Diptheroids Continue IV daptomycin and aztreonam >>>Transition to Zyvox 600mg BID for 2 weeks Appreciate ID Input Lactate levels normalized Avoid quinolones given h/o Achilles tendinitis. (2) UTI (urinary tract infection): Urethral stricture CT ABD: Right-sided nephrolithiasis. No ureteral calculi or hydronephrosis. No CT evidence for pyelonephritis. S/P Internal Urethrotomy, duong catheter placement on 09/08/18 Continue antibiotics as above Appreciate Urology help (3) Nephrolithiasis: No ureteral calculi. Management per Urology. (4) Essential hypertension: Stable Continue losartan (5) Diabetes mellitus type 2, controlled: Hold metformin Hb A1c:6.8 Continue Lantus/NovoLog (6) Morbid obesity: BMI 51 AHA, diabetic diet. (7) DVT prophylaxis: No anticoagulants due to anticipated urologic procedure. SCD's. (8) Discharge planning issues: Plan to discharge home when stable Family Medicine follow-up with Dr. Moncada. Urology follow-up with Dr. Soni. Subjective Patient is seen and examined at bedside Doing well today Had Urethrotomy yesetrday No new complaints Has chronic low back pain Denies chest pain, dyspnea, dizziness Eager to get discharged Physical Exam 2 Vital Signs (Past 24 Hours): Last Vital Signs Temp 37.2 C 09/09/18 15:16 Pulse 78 09/09/18 15:16 Resp 18 09/09/18 15:16 BP 152/82 H 09/09/18 15:16 Pulse Ox 94 09/09/18 15:16 Physical Exam: Physical Exam: Vitals signs as noted above General Appearance:Obese, no apparent distress Head: normocephalic, Atraumatic Eyes: normal inspection, EOMI Neck: supple, Trachea midline Respiratory/Chest: Decreased breath sounds, CTA Cardiovascular: S1, S2, No murmur Abdomen/GI:Soft, Non tender, Bowel sounds present Extremities/Musculoskelatal:normal inspection, no edema Neurologic/Psych:AAOX3, grossly no focal neurological deficits Skin: normal color, warm Results & Data Laboratory Results Short CBC 09/09/18 Range/Units 05:55 WBC 11.10 H (4.8-10.8) K/uL Hgb 12.2 L (14.0-18.0) g/dL Hct 36.8 L (42-52) % Plt Count 181 (130-400) K/uL [facility] 09/09/18 05:55 Sodium 138 Potassium 3.7 Chloride 109 H Carbon Dioxide 24 BUN 9 Creatinine 0.75 Glucose 105 H Calcium 8.0 L _ (1) Sepsis Sepsis type: sepsis due to unspecified organism Qualified Code(s): A41.9 - Sepsis, unspecified organism (2) UTI (urinary tract infection) Encounter type: Hematuria presence: without hematuria Indwelling urinary catheter type: Urinary tract infection type: site unspecified Qualified Code( s): N39.0 - Urinary tract infection, site not specified
--- NOTE | 2018-09-09 15:54 | Discharge Summary ---
Date of Service September 09, 2018 Admission HPI Per Admitting Provider 48-year-old male followed by Dr. Moncada for Family Medicine and Dr. Soni for Urology. History of essential hypertension, diabetes mellitus type 2, and other problems as noted below. History of urethral surgery with subsequent stricture. Scheduled for surgery with Dr. Soni on September 08. Had transient fever on 08/31 and 09/01. Afebrile for the next few days. Today, he developed fever, chills, urinary urgency and hesitancy. No dysuria or hematuria. No flank pain. Came to the ED for evaluation. Noted to have temp as high as 39.4. Had one episode of nausea and vomiting without hematemesis. Admission Exam Per Admitting Provider Constitutional: + morbidly obese; no acute distress Eyes: PERRL, conjunctivae normal, anicteric sclerae ENMT: external ear and nose normal, oropharynx normal Neck: trachea midline, no thyromegaly Respiratory: normal respiratory effort, lungs clear to auscultation Cardiovascular: Rate/Rhythm: regular rate and + tachycardic Heart Sounds: no gallop, no murmur and no cardiac rub Vessels: no JVD Extremities: normal capillary refill; no calf tenderness and no edema Gastrointestinal (Abdomen): normal bowel sounds, soft, nontender, no hepatosplenomegaly Musculoskeletal: Head/Neck/Chest: neck supple Extremities: strength 5/5 throughout; no cyanosis and no clubbing Skin: no rashes, warm and dry Neurologic: PERRL, EOMI no facial palsy no dysarthria or aphasia Psychiatric: Orientation: alert and oriented x 3 Affect: euthymic affect Lymphatic: no cervical lymphadenopathy Principal Diagnosis Discharge Information Discharge Diagnosis Sepsis, UTI Urethral stricture S/P Internal Urethrotomy Discharge Goals Decrease discomfort,Improve disease control, Improve function Discharge Activity Limitations Resume your previous activity Discharge Data Allergies Allergy/AdvReac Type Severity Reaction Status Date / Time cephalexin Allergy Unknown VOMITING Verified 09/06/18 14:58 Tetracyclines AdvReac Mild fever, Verified 09/06/18 14:58 hallucinations, vomiting Consultations 09/06/18 16:47 ED Decision to Admit Stat 09/07/18 03:29 Consult Urology Routine 09/07/18 06:49 Consult Infectious Diseases Routine Procedures Performed Operation Date: 09/08/18 08:15 Actual Procedures p Optical Internal Urethrotomy, Cystoscopy, Fulguration of urethral bleeders( Not Applicable) - Romeo Soni MD CT ABD: 1. Right-sided nephrolithiasis. No ureteral calculi or hydronephrosis. 2. No CT evidence for pyelonephritis. 3. Fatty liver. 4. No bowel obstruction. Normal appendix. CXR: No active disease in the chest. Ordered Studies 09/06/18 15:33 CT abd pelvis IV con only Stat Hospital Course (1) Sepsis: Sepsis: source UTI Blood culture:Coag negative Staph , Diptheroids Urine Culture: Coag negative Staph, Diptheroids Continue IV daptomycin and aztreonam >>>Transition to Zyvox 600mg BID for 2 weeks Appreciate ID Input Lactate levels normalized Avoid quinolones given h/o Achilles tendinitis. (2) UTI (urinary tract infection): Urethral stricture CT ABD: Right-sided nephrolithiasis. No ureteral calculi or hydronephrosis. No CT evidence for pyelonephritis. S/P Internal Urethrotomy, duong catheter placement on 09/08/18 Continue antibiotics as above Appreciate Urology help (3) Nephrolithiasis: No ureteral calculi. Management per Urology. (4) Essential hypertension: Stable Continue losartan (5) Diabetes mellitus type 2, controlled: Hold metformin Hb A1c:6.8 Continue Lantus/NovoLog (6) Morbid obesity: BMI 51 AHA, diabetic diet. (7) DVT prophylaxis: No anticoagulants due to anticipated urologic procedure. SCD's. (8) Discharge planning issues: Plan to discharge home when stable Family Medicine follow-up with Dr. Moncada. Urology follow-up with Dr. Soni. Total Time Total Time Spent Total Time Spent (In Minutes): 39 minutes Total Time Includes: Examination of the Patient, Discharge Planning, Medication Reconciliation, Communication With Other Providers and Other Discharge Plan Discharge Items Patient Disposition: Home - Self-Care Reason For Visit: SEPSIS Discharge Diagnosis: Sepsis, UTI Urethral stricture S/P Internal Urethrotomy Discharge Goals: Decrease discomfort, Improve disease control and Improve function Activity: Resume your previous activity Exercise/Sports: Gradually increase as tolerated Non-emergency contact: Primary Care Provider, Specialist and Urologist Call non-emergency contact if: you have any medication questions, your symptoms worsen, your pain is not controlled, your pain is worsening, your pain is unusual for you and you have a fever Diet: Carb Consistent or DM2 and Heart Healthy Addtl Provider Instructions: Follow up with your PCP on 09/16/18 at 12:45pm Follow up with your Urologist as advised Follow up with your infectious disease in 2 weeks Complete the antibiotic course as prescribed Seek immediate medical attention if your symptoms reoccur or worsen Prescriptions: New phenazopyridine [Pyridium] 200 mg Tablet 200 mg PO TID PRN (Reason: pain) 7 Days Qty: 20 RF: 0 linezolid [Zyvox] 600 mg tablet 600 mg PO BID 14 Days Qty: 28 RF: 0 Continue metformin 500 mg Tablet 1,000 mg PO HS RF: 0 losartan 25 mg Tablet 25 mg PO BID RF: 0 Discontinued naproxen sodium 220 mg Tablet 440 mg PO BID RF: 0 nitrofurantoin monohyd/m-cryst 100 mg capsule 100 mg PO BID RF: 0 Visit Report Forms: My [facility] Stand-Alone Forms: [facility] Discharge Orders: Discharge Order (Routine); Ordered 09/09/18 Ordered By: Leonardo Callahan Admission Data Admit Date/Time: 09/06/18 17:12 Attending Provider: Leonardo Callahan Admit Provider: Arnaldo Mccann Primary Care Provider: Ahsan Moncada Other Providers: Arnaldo Mccann ; Nita Guillen ; Romeo Soni I ; Re Smith Service: Telemetry Other Interventions: Discharge Summary Assessment (RN) Last Done: 09/09/18 16:39 DC Date/Time DO NOT enter until pt leaves facility: 09/09/18 16:55
[2018-09-09] MEDS ORDERED: LINEZOLID 600 MG TAB PO SCH (17:00)
== END 2018-09-09 16:55 | disposition home or self-care (01) | DRG 854 ==
LOC: ED 14:15 → SUATTDRO 17:12 → 2E 17:12
DX: Z68.43 Body mass index [BMI] 50.0-59.9, adult; F41.9 Anxiety disorder, unspecified; Z82.49 Family history of ischemic heart disease and other diseases of the circulatory system; Z87.891 Personal history of nicotine dependence; N32.89 Other specified disorders of bladder; N39.0 Urinary tract infection, site not specified; Z79.84 Long term (current) use of oral hypoglycemic drugs; E11.9 Type 2 diabetes mellitus without complications; Z87.440 Personal history of urinary (tract) infections; A41.2 Sepsis due to unspecified staphylococcus; I10 Essential (primary) hypertension; N20.0 Calculus of kidney; Z83.3 Family history of diabetes mellitus; E66.01 Morbid (severe) obesity due to excess calories; N35.919 Unspecified urethral stricture, male, unspecified site